=== PATIENT | female | born 1955 | race American Indian/Alaskan Native ===

== ENCOUNTER 2019-04-24 15:32 | Inpatient (IN) | payer MEDICARE ==
--- NOTE | 2019-04-24 16:08 | Event Note ---
ED Screening Note Date of service: 04/24/19 Time: 16:02 ED Screening Note: This is a 63 y.o. F. that presents to the ER with SOB, edema, and left shoulder pain x 3 days. PMH of HTN, Afib, morbid obesity, DM, & sciatica This initial assessment/diagnostic orders/clinical plan/treatment(s) is/are subject to change based on patients health status, clinical progression and re- assessment by fellow clinical providers in the ED. Further treatment and workup at subsequent clinical providers discretion. Patient/guardian urged not to elope from the ED as their condition may be serious if not clinically assessed and managed. Initial orders include: Labs, CXR, & EKG
--- NOTE | 2019-04-24 16:55 | XRay Report ---
CHEST 2 VIEWS INDICATION: edema and sob. COMPARISON: 03/03/2013. FINDINGS: Support devices: None. Heart: Moderate cardiomegaly has increased. Lungs/Pleura: No acute air space or interstitial disease. No significant pleural effusion. IMPRESSION: Increasing cardiomegaly. Signer Name: Richy Mei MD Signed: 04/24/2019 4:51 PM Workstation Name: [id number]
[2019-04-24 17:30] LABS: Alanine Aminotransferase 20 units/L (7-56); Albumin 3.5 g/dL (3.9-5); BUN/Creatinine Ratio 23; Blood Urea Nitrogen 16 mg/dL (7-17); Calcium 9.1 mg/dL (8.4-10.2); Hemolysis Index 29
[2019-04-24 17:39] LABS: Basophils % (Auto) 0.4 % (0.0-1.8); Eosinophils # (Auto) 0.1 K/mm3 (0.0-0.4); Eosinophils % (Auto) 1.1 % (0.0-4.3); Hematocrit 36.8 % (30.3-42.9); Hemoglobin 12.1 gm/dl (10.1-14.3); Lymphocytes # (Auto) 1.6 K/mm3 (1.2-5.4); Lymphocytes % (Auto) 18.7 % (13.4-35.0); Mean Corpuscular HGB Conc 33 % (30-34); Mean Corpuscular Volume 97 fl (79-97); Monocytes # (Auto) 0.4 K/mm3 (0.0-0.8); Monocytes % (Auto) 4.3 % (0.0-7.3); Platelet Count 241 K/mm3 (140-440); Red Blood Count 3.81 M/mm3 (3.65-5.03); Red Cell Distribution Width 15.4 % (13.2-15.2)
[2019-04-24] MEDS ORDERED: FUROSEMIDE 40 MG/4 ML INJ IV ONE (19:52)
[2019-04-24 20:40] LABS: INR 1.19 (0.87-1.13)
[2019-04-24 20:41] LABS: Partial Thromboplastin Time 29.7 Sec. (24.2-36.6)
--- NOTE | 2019-04-24 21:36 | Emergency Department Report ---
ED Shortness of Breath HPI - General Chief Complaint: Dyspnea/Respdistress Stated Complaint: LEG SWELLING/SHORTNESS OF BREATH Time Seen by Provider: 04/24/19 16:01 Source: patient Mode of arrival: Wheelchair Limitations: No Limitations - History of Present Illness Initial Comments: Patient is a 63 yo AA female with a h/o chronic HTN, NIDDM, A-Fib and JHONNY and morbid obesity who presents to the ED with c/o acute onset persistent dyspnea on exertion, orthopnea and bilateral lower extremity edema for the last 1 week. Patient also c/o exertion chest pain and pressure. Patient denies dizziness, nausea, vomiting, cough, palpitations, syncope, abdominal pain, diaphoresis or headache, fever and chills. MD Complaint: shortness of breath, chest pain -: Sudden, week(s) (1) Pain Scale: 3 Quality: dull, aching Consistency: constant Improves With: nothing Worsens With: lying flat, exertion, movement Known History Of: diabetes Associated Symptoms: denies other symptoms, chest pain Treatments Prior to Arrival: none - Related Data Home Oxygen Therapy: No Home Medications Medication Instructions Recorded Confirmed Last Taken Aspirin [Baby Aspirin] 81 mg PO QDAY 03/03/13 03/03/13 03/03/13 02:00 Calcium Carbonate [Calcium] mg PO BID 03/03/13 03/03/13 03/03/13 02:00 Gabapentin 300 mg PO QDAY 03/03/13 03/03/13 03/03/13 02:00 Insulin NPH Hum/Reg Insulin Hm 30 units SUB-Q QPM 03/03/13 03/03/13 03/03/13 02:00 [Humulin 70-30 Vial] Insulin NPH Hum/Reg Insulin Hm 40 units SUB-Q QAM 03/03/13 03/03/13 03/03/13 11:30 [Humulin 70-30 Vial] Losartan/Hydrochlorothiazide 1 each PO QDAY 03/03/13 03/03/13 03/03/13 12:00 [Hyzaar 100-12.5] Metoprolol [Lopressor] 50 mg PO BID 03/03/13 03/03/13 03/03/13 02:00 Multivitamin [Multi-Vitamin Daily] 1 tab PO QDAY 03/03/13 03/03/13 03/03/13 02:00 Previous Rx's Medication Instructions Recorded Last Taken Type Hydrocodone Bit/Homatrop Me-Br 5 ml PO Q4H PRN #80 ml 03/03/13 Unknown Rx [Hydrocodone-Homatropine Syr 5-1.5 mg/5ml] Allergies Allergy/AdvReac Type Severity Reaction Status Date / Time duloxetine [From Cymbalta] Allergy Unknown Verified 04/24/19 15:38 ibuprofen Allergy Unknown Verified 04/24/19 15:38 lisinopril Allergy Swelling Verified 04/24/19 15:38 ED Review of Systems ROS: Stated complaint: LEG SWELLING/SHORTNESS OF BREATH Other details as noted in HPI Constitutional: denies: chills, fever Eyes: denies: eye pain, eye discharge, vision change ENT: denies: ear pain, throat pain Respiratory: orthopnea, shortness of breath, SOB with exertion, SOB at rest. denies: cough, wheezing Cardiovascular: chest pain, dyspnea on exertion, edema (bilateral lower legs). denies: palpitations Endocrine: no symptoms reported Gastrointestinal: denies: abdominal pain, nausea, diarrhea Genitourinary: denies: urgency, dysuria, discharge Musculoskeletal: other (Bilateral lower leg swelling). denies: back pain, joint swelling, arthralgia Skin: denies: rash, lesions Neurological: denies: headache, weakness, paresthesias Psychiatric: denies: anxiety, depression Hematological/Lymphatic: denies: easy bleeding, easy bruising ED Past Medical Hx - Past Medical History Previous Medical History?: Yes Hx Hypertension: Yes Hx Diabetes: Yes Additional medical history: DDD, Afib, Sciatica - Surgical History Past Surgical History?: Yes Additional Surgical History: lap band. tubal ligation. carpel tunnel x 4. umbilical hernia repair - Social History Smoking Status: Former Smoker Substance Use Type: None - Medications Home Medications: Home Medications Medication Instructions Recorded Confirmed Last Taken Type Aspirin [Baby Aspirin] 81 mg PO QDAY 03/03/13 03/03/13 03/03/13 02:00 History Calcium Carbonate [Calcium] mg PO BID 03/03/13 03/03/13 03/03/13 02:00 History Gabapentin 300 mg PO QDAY 03/03/13 03/03/13 03/03/13 02:00 History Hydrocodone Bit/Homatrop Me-Br 5 ml PO Q4H PRN #80 ml 03/03/13 Unknown Rx [Hydrocodone-Homatropine Syr 5-1.5 mg/5ml] Insulin NPH Hum/Reg Insulin Hm 30 units SUB-Q QPM 03/03/13 03/03/13 03/03/13 02:00 History [Humulin 70-30 Vial] Insulin NPH Hum/Reg Insulin Hm 40 units SUB-Q QAM 03/03/13 03/03/13 03/03/13 11:30 History [Humulin 70-30 Vial] Losartan/Hydrochlorothiazide 1 each PO QDAY 03/03/13 03/03/13 03/03/13 12:00 History [Hyzaar 100-12.5] Metoprolol [Lopressor] 50 mg PO BID 03/03/13 03/03/13 03/03/13 02:00 History Multivitamin [Multi-Vitamin Daily] 1 tab PO QDAY 03/03/13 03/03/13 03/03/13 02:00 History ED Physical Exam - General Limitations: No Limitations General appearance: alert, in no apparent distress - Head Head exam: Present: atraumatic, normocephalic, normal inspection - Eye Eye exam: Present: normal appearance, PERRL, EOMI Pupils: Present: normal accommodation - ENT ENT exam: Present: normal exam, normal orophraynx, mucous membranes moist, TM's normal bilaterally, normal external ear exam - Neck Neck exam: Present: normal inspection, full ROM - Respiratory Respiratory exam: Present: normal lung sounds bilaterally. Absent: respiratory distress, wheezes, rales, rhonchi, chest wall tenderness, accessory muscle use, decreased breath sounds, prolonged expiratory - Cardiovascular Cardiovascular Exam: Present: normal rhythm, irregular rhythm, normal heart sounds. Absent: systolic murmur, diastolic murmur, rubs, gallop - GI/Abdominal GI/Abdominal exam: Present: soft, normal bowel sounds. Absent: tenderness, rebound, hyperactive bowel sounds - Extremities Exam Extremities exam: Present: normal inspection, full ROM, normal capillary refill, pedal edema (Bilateral 2+ pedal edema) - Back Exam Back exam: Present: normal inspection, full ROM. Absent: tenderness, CVA tenderness (L), muscle spasm, paraspinal tenderness - Neurological Exam Neurological exam: Present: alert, oriented X3, CN II-XII intact, normal gait, reflexes normal - Psychiatric Psychiatric exam: Present: normal affect, normal mood - Skin Skin exam: Present: warm, dry, intact, normal color. Absent: rash ED Course Vital Signs 04/24/19 04/24/19 16:03 20:15 Temperature 97.5 F L Pulse Rate 71 70 Respiratory 22 18 Rate Blood Pressure 131/59 Blood Pressure 142/96 [Left] O2 Sat by Pulse 95 94 Oximetry ED Medical Decision Making - Lab Data Result diagrams: 04/24/19 16:32 04/24/19 16:32 - EKG Data Interpretation: other (Atrial Fibrillation) 04/24/19 21:4 EKG shows Atrial Fibrillation - Radiology Data Chest x-ray shows increasing Cardiomegaly - Medical Decision Making This is a 63 yo AA female with a h/o HTN, A-Fib, NIDDM who presented to the ED with worsening dyspnea on exertion, orthopnea and bilateral lower extremity edema for the last 1 week. In the ED, patient is alert and oriented x 3 and is in no acute distress. Patient unable to lay flat on bed due to worsening dyspnea. EKG shows A-FIB, and chest x-ray shows increasing Cardiomegaly. Lab test results shows BNP of 1975 and the initial Troponin levels are normal. Patient was treated in the ED with Lasix 40mg IV x 1 and the case discussed with the Hospitalist Physician Dr. Jaffe who admitted the patient for a new onset CHF. - Differential Diagnosis CHF, Pneumonia; ACS; Renal failure Critical care attestation.: If time is entered above; I have spent that time in minutes in the direct care of this critically ill patient, excluding procedure time. ED Disposition Clinical Impression: Dyspnea on exertion, New onset of congestive heart failure Disposition: OP ADMIT IP TO THIS HOSP Is pt being admited?: Yes Does the pt Need Aspirin: No Condition: Stable Referrals: PRIMARY CARE, [Primary Care Provider] - 3-5 Days Time of Disposition: 21:33 Print Language: WALLISIAN
[2019-04-24] MEDS ORDERED: ACETAMINOPHEN 325 MG TAB PO PRN (22:37)
[2019-04-24] MEDS ORDERED: MAGNESIUM HYDROXIDE (MOM) ORAL LIQD UDC PO PRN (22:37)
[2019-04-24] MEDS ORDERED: ONDANSETRON 4 MG/2 ML INJ IV PRN (22:37)
[2019-04-24] MEDS ORDERED: DEXTROSE 50% IN WATER (25GM) 50 ML SYRINGE IV PRN (22:49)
[2019-04-24 22:52] LABS: Bilirubin,Urine NEG (Negative); Blood,Urine SM (Negative); Color,Urine Colorless (Yellow); Protein,Urine <15 mg/dL mg/dL (Negative); Urobilinogen,Urine < 2.0 mg/dL (<2.0); WBC,Urine < 1.0 /HPF (0.0-6.0)
--- NOTE | 2019-04-25 01:50 | History and Physical Report ---
History of Present Illness Date of examination: 04/24/19 Date of admission: 04/24/19 22:37 Chief complaint: Shortness of breath History of present illness: 63-year-old female with known history of diabetes mellitus, hypertension, atrial fibrillation status post catheter ablation in the past and obstructive sleep apnea presenting to the emergency room today complaining of shortness of breath and orthopnea which has been ongoing for about a week prior to reporting he had today. She has also noticed progressive swelling of her lower extremities. She denies any chest pain, no nausea vomiting, no fever or chills. Past History Past Medical History: atrial fib, diabetes, hypertension, other (Obstructive sleep apnea, morbid obesity, sciatica and degenerative disc disease.) Past Surgical History: hernia repair (Umbilical hernia repair), Other (Catheter ablation for A. fib, lap band, carpal tunnel surgery) Social history: smoking (Patient is a former smoker) Family history: cancer (Sister had ovarian cancer, grandmother had colon cancer.), diabetes (Mother had diabetes mellitus,) Medications and Allergies Allergies Allergy/AdvReac Type Severity Reaction Status Date / Time duloxetine [From Cymbalta] Allergy Unknown Verified 04/24/19 15:38 ibuprofen Allergy Unknown Verified 04/24/19 15:38 lisinopril Allergy Swelling Verified 04/24/19 15:38 Home Medications Medication Instructions Recorded Confirmed Last Taken Type Calcium Carbonate [Calcium] 1 mg PO BID 03/03/13 04/24/19 03/03/13 02:00 History Gabapentin 300 mg PO QDAY 03/03/13 04/24/19 03/03/13 02:00 History Hydrocodone Bit/Homatrop Me-Br 5 ml PO Q4H PRN #80 ml 03/03/13 04/24/19 Unknown Rx [Hydrocodone-Homatropine Syr 5-1.5 mg/5ml] Insulin NPH Hum/Reg Insulin Hm 30 units SUB-Q QPM 03/03/13 04/24/19 03/03/13 02:00 History [Humulin 70-30 Vial] Insulin NPH Hum/Reg Insulin Hm 40 units SUB-Q QAM 03/03/13 04/24/19 03/03/13 11:30 History [Humulin 70-30 Vial] Losartan/Hydrochlorothiazide 1 each PO QDAY 03/03/13 04/24/19 03/03/13 12:00 History [Hyzaar 100-12.5] Metoprolol [Lopressor] 50 mg PO BID 03/03/13 04/24/19 03/03/13 02:00 History Multivitamin [Multi-Vitamin Daily] 1 tab PO QDAY 03/03/13 04/24/19 03/03/13 02:00 History Apixaban [Eliquis] 5 mg PO BID 04/24/19 04/24/19 Unknown History Active Meds: Active Medications Acetaminophen (Tylenol) 650 mg PO Q4H PRN PRN Reason: Pain MILD(1-3)/Fever >100.5/ORTIZ Dextrose (D50w (25gm) Syringe) 0 ml IV Q30MIN PRN; Protocol PRN Reason: Hypoglycemia Furosemide (Lasix) 40 mg IV BID@0600,1800 [facility] Insulin Human Lispro (Humalog) 0 unit SUB-Q ACHS [facility]; Protocol Magnesium Hydroxide (Milk Of Magnesia) 30 ml PO Q4H PRN PRN Reason: Constipation Morphine Sulfate (Morphine) 2 mg IV Q4H PRN PRN Reason: Pain, Moderate (4-6) Ondansetron HCl (Zofran) 4 mg IV Q8H PRN PRN Reason: Nausea And Vomiting Sodium Chloride (Sodium Chloride Flush Syringe 10 Ml) 10 ml IV BID [facility] Sodium Chloride (Sodium Chloride Flush Syringe 10 Ml) 10 ml IV PRN PRN PRN Reason: LINE FLUSH Review of Systems Cardiovascular: orthopnea, edema, shortness of breath Exam - Constitutional Vitals: Temp Pulse Resp BP Pulse Ox 97.7 F 70 20 138/61 93 04/25/19 00:55 04/25/19 00:55 04/25/19 00:55 04/25/19 00:55 04/25/19 00:55 General appearance: Present: no acute distress, well-nourished, obese (Morbidly obese) - EENT Eyes: Present: PERRL, EOM intact ENT: hearing intact, clear oral mucosa, dentition normal - Neck Neck: Present: supple, normal ROM - Respiratory Respiratory effort: normal Respiratory: bilateral: CTA - Cardiovascular Rhythm: regular Heart Sounds: Present: S1 & S2 - Extremities Extremities: no ischemia, Full ROM Extremity abnormal: edema (2+ bilateral lower extremity edema) Peripheral Pulses: within normal limits - Abdominal General gastrointestinal: Present: soft, non-tender, normal bowel sounds - Integumentary Integumentary: Present: clear, warm, dry - Musculoskeletal Musculoskeletal: strength equal bilaterally - Psychiatric Psychiatric: appropriate mood/affect, intact judgment & insight, cooperative - Neurologic Neurologic: CNII-XII intact, moves all extremities Results - Labs CBC & Chem 7: 04/24/19 16:32 04/24/19 16:32 Labs: Abnormal lab results 04/24/19 04/24/19 04/24/19 Range/Units 16:32 16:32 19:51 RDW 15.4 H (13.2-15.2) % Seg Neutrophils % 75.5 H (40.0-70.0) % PT 15.3 H (12.2-14.9) Sec. INR 1.19 H (0.87-1.13) Carbon Dioxide 21 L (22-30) mmol/L Glucose 132 H (65-100) mg/dL NT-Pro-B Natriuret Pep 1975 H (0-900) pg/mL Albumin 3.5 L (3.9-5) g/dL Assessment and Plan - Patient Problems (1) New onset of congestive heart failure Current Visit: Yes Status: Acute Plan to address problem: Patient is admitted to telemetry and will diurese with IV Lasix. Will monitor daily weight and monitor input and output. We will request cardiology evaluation and recommendation. We will schedule for echocardiogram. (2) Dyspnea on exertion Current Visit: Yes Status: Acute Plan to address problem: Probably secondary to CHF. (3) Diabetes mellitus Current Visit: Yes Status: Acute Plan to address problem: We will monitor Accu-Cheks. We will continue routine home medications. (4) Hypertension Current Visit: Yes Status: Acute Plan to address problem: Blood pressure stable. Will monitor vital signs closely. (5) History of atrial fibrillation Current Visit: Yes Status: Acute Plan to address problem: Status post catheter ablation in the past. Rate is currently controlled. (6) History of obstructive sleep apnea Current Visit: Yes Status: Acute Plan to address problem: Stable. (7) DVT prophylaxis Current Visit: Yes Status: Acute Plan to address problem: Patient placed on subcutaneous heparin. (8) Full code status Current Visit: Yes Status: Acute
[2019-04-25] MEDS: MORPHINE 2 MG/1 ML INJ IV PRN ×2 (02:11→15:16)
[2019-04-25 05:29] LABS: INR 0.72 (0.87-1.13)
[2019-04-25 05:30] LABS: Basophils % (Auto) 0.5 % (0.0-1.8); Eosinophils # (Auto) 0.1 K/mm3 (0.0-0.4); Eosinophils % (Auto) 1.5 % (0.0-4.3); Hematocrit 36.3 % (30.3-42.9); Lymphocytes # (Auto) 2.1 K/mm3 (1.2-5.4); Lymphocytes % (Auto) 25.9 % (13.4-35.0); Mean Corpuscular HGB Conc 33 % (30-34); Mean Corpuscular Volume 96 fl (79-97); Monocytes # (Auto) 0.5 K/mm3 (0.0-0.8); Monocytes % (Auto) 5.7 % (0.0-7.3); Platelet Count 214 K/mm3 (140-440); Red Cell Distribution Width 15.2 % (13.2-15.2)
[2019-04-25 05:31] LABS: Partial Thromboplastin Time < 24.2 Sec. (24.2-36.6)
[2019-04-25 05:36] LABS: BUN/Creatinine Ratio 21; Blood Urea Nitrogen 15 mg/dL (7-17); Calcium 9.1 mg/dL (8.4-10.2); Hemolysis Index 28
[2019-04-25] MEDS: FUROSEMIDE 40 MG/4 ML INJ IV SCH ×2 (06:46→17:23)
[2019-04-25] MEDS: HEPARIN 5,000 UNIT/1 ML VIAL SUB-Q SCH ×3 (06:46→22:29)
[2019-04-25] MEDS: INSULIN LISPRO 100 UNIT/ML SUB-Q SCH ×4 (08:19→22:49)
--- NOTE | 2019-04-25 08:57 | Consultation ---
History of Present Illness Consult date: 04/25/19 Consult reason: congestive heart failure, hypertension History of present illness: 63 year old obese -[place]ian female presenting with shortness of breath to the emergency room. She denies any chest pain and states that her [employer] are in [facility] Past History Past Medical History: atrial fib, diabetes, hypertension, other (Obstructive sleep apnea, morbid obesity, sciatica and degenerative disc disease.) Past Surgical History: hernia repair (Umbilical hernia repair), Other (Catheter ablation for A. fib, lap band, carpal tunnel surgery) Social history: smoking (Patient is a former smoker) Family history: cancer (Sister had ovarian cancer, grandmother had colon cancer.), diabetes (Mother had diabetes mellitus,) Medications and Allergies Allergies Allergy/AdvReac Type Severity Reaction Status Date / Time duloxetine [From Cymbalta] Allergy Unknown Verified 04/24/19 15:38 ibuprofen Allergy Unknown Verified 04/24/19 15:38 lisinopril Allergy Swelling Verified 04/24/19 15:38 Home Medications Medication Instructions Recorded Confirmed Last Taken Type Calcium Carbonate [Calcium] 1 mg PO BID 03/03/13 04/24/19 03/03/13 02:00 History Gabapentin 300 mg PO QDAY 03/03/13 04/24/19 03/03/13 02:00 History Hydrocodone Bit/Homatrop Me-Br 5 ml PO Q4H PRN #80 ml 03/03/13 04/24/19 Unknown Rx [Hydrocodone-Homatropine Syr 5-1.5 mg/5ml] Insulin NPH Hum/Reg Insulin Hm 30 units SUB-Q QPM 03/03/13 04/24/19 03/03/13 02:00 History [Humulin 70-30 Vial] Insulin NPH Hum/Reg Insulin Hm 40 units SUB-Q QAM 03/03/13 04/24/19 03/03/13 11:30 History [Humulin 70-30 Vial] Losartan/Hydrochlorothiazide 1 each PO QDAY 03/03/13 04/24/19 03/03/13 12:00 History [Hyzaar 100-12.5] Metoprolol [Lopressor] 50 mg PO BID 03/03/13 04/24/19 03/03/13 02:00 History Multivitamin [Multi-Vitamin Daily] 1 tab PO QDAY 03/03/13 04/24/19 03/03/13 02:00 History Apixaban [Eliquis] 5 mg PO BID 04/24/19 04/24/19 Unknown History Active Meds: Active Medications Acetaminophen (Tylenol) 650 mg PO Q4H PRN PRN Reason: Pain MILD(1-3)/Fever >100.5/ORTIZ Dextrose (D50w (25gm) Syringe) 0 ml IV Q30MIN PRN; Protocol PRN Reason: Hypoglycemia Furosemide (Lasix) 40 mg IV BID@0600,1800 [facility] Last Admin: 04/25/19 06:46 Dose: 40 mg Documented by: Heparin Sodium (Porcine) (Heparin) 5,000 unit SUB-Q Q8HR [facility] Last Admin: 04/25/19 06:46 Dose: 5,000 unit Documented by: Insulin Human Lispro (Humalog) 0 unit SUB-Q ACHS [facility]; Protocol Last Admin: 04/25/19 08:19 Dose: Not Given Documented by: Magnesium Hydroxide (Milk Of Magnesia) 30 ml PO Q4H PRN PRN Reason: Constipation Morphine Sulfate (Morphine) 2 mg IV Q4H PRN PRN Reason: Pain, Moderate (4-6) Last Admin: 04/25/19 02:11 Dose: 2 mg Documented by: Ondansetron HCl (Zofran) 4 mg IV Q8H PRN PRN Reason: Nausea And Vomiting Sodium Chloride (Sodium Chloride Flush Syringe 10 Ml) 10 ml IV BID [facility] Sodium Chloride (Sodium Chloride Flush Syringe 10 Ml) 10 ml IV PRN PRN PRN Reason: LINE FLUSH Review of Systems Constitutional: weight gain, fatigue, weakness Ears, nose, mouth and throat: no ear pain, no ear discharge, no tinnitis, no bleeding gums, no dental pain, no mouth pain Breasts: no deferred Cardiovascular: orthopnea, edema, dyspnea on exertion, no chest pain, no palpitations, no rapid/irregular heart beat, no syncope Respiratory: no shortness of breath, no dyspnea on exertion, no congestion, no wheezing Gastrointestinal: no nausea, no vomiting, no diarrhea Musculoskeletal: no neck stiffness, no neck pain, no shooting arm pain Integumentary: no rash, no pruritis, no redness Neurological: no head injury, no transient paralysis, no paralysis, no weakness, no parathesias, no numbness Psychiatric: no anxiety Endocrine: no cold intolerance, no polyphagia, no polydipsia Hematologic/Lymphatic: no easy bruising, no easy bleeding Allergic/Immunologic: no urticaria, no allergic rhinitis, no wheezing Physical Examination Vital Signs Temp Pulse Resp BP Pulse Ox 97.5 F L 71 22 131/59 95 04/24/19 16:03 04/24/19 16:03 04/24/19 16:03 04/24/19 16:03 04/24/19 16:03 General appearance: obese HEENT: Positive: PERRL, Normocephaly, Mucus Membranes Moist Neck: Positive: neck supple, trachea midline. Negative: JVD/HJR Cardiac: Positive: irregularly irregular, S1/S2, PMI, Dilated, Laterally Displaced Lungs: Positive: clear to auscultation, No Wheeze, Rales, Rhonchi Neuro: Positive: Grossly Intact Abdomen: Positive: Unremarkable, Active Bowel Sounds Extremities: Present: normal. Absent: edema Results 04/25/19 03:53 04/25/19 03:53 Cardiac Enzymes 04/24/19 Range/Units 16:32 AST 20 (5-40) units/L Coagulation 04/24/19 04/25/19 Range/Units 19:51 03:53 PT 15.3 H 10.3 L (12.2-14.9) Sec. INR 1.19 H 0.72 L (0.87-1.13) APTT 29.7 < 24.2 L (24.2-36.6) Sec. CBC 04/24/19 04/25/19 Range/Units 16:32 03:53 WBC 8.4 8.3 (4.5-11.0) K/mm3 RBC 3.81 3.80 (3.65-5.03) M/mm3 Hgb 12.1 12.0 (10.1-14.3) gm/dl Hct 36.8 36.3 (30.3-42.9) % Plt Count 241 214 (140-440) K/mm3 Lymph # 1.6 2.1 (1.2-5.4) K/mm3 [place] # 0.4 0.5 (0.0-0.8) K/mm3 Eos # 0.1 0.1 (0.0-0.4) K/mm3 Baso # 0.0 0.0 (0.0-0.1) K/mm3 Comprehensive Metabolic Panel 04/24/19 04/25/19 Range/Units 16:32 03:53 Sodium 139 145 (137-145) mmol/L Potassium 4.8 4.4 (3.6-5.0) mmol/L Chloride 103.8 104.6 (98-107) mmol/L Carbon Dioxide 21 L 24 (22-30) mmol/L BUN 16 15 (7-17) mg/dL Creatinine 0.7 0.7 (0.7-1.2) mg/dL Glucose 132 H 107 H (65-100) mg/dL Calcium 9.1 9.1 (8.4-10.2) mg/dL AST 20 (5-40) units/L ALT 20 (7-56) units/L Alkaline Phosphatase 72 (35-129) units/L Total Protein 6.9 (6.3-8.2) g/dL Albumin 3.5 L (3.9-5) g/dL EKG interpretations - Telemetry EKG Rhythm: Atrial Fibrillation Assessment and Plan 1. Chronic atrial fibrillation 2. Essential hypertension 3. Type 2 diabetes mellitus 4. Morbid obesity 5. Obstructive sleep apnea Patient's chest x-ray shows no overt signs of pulmonary edema. Patient to have an echocardiogram. EKG shows atrial fibrillation with a controlled ventricular response. Plan. Echocardiogram. Recommend anticoagulation long-term. Check TSH level
[2019-04-25] MEDS ORDERED: HYDROcodone/HOMATROPINE 5-1.5MG /5 ML ORAL LIQD UNIT DOSE PO PRN (12:09)
--- NOTE | 2019-04-25 12:09 | Progress Note ---
Assessment and Plan / New onset of congestive heart failure Patient is admitted to telemetry and will cont diurese with IV Lasix. Will monitor daily weight and monitor input and output. We will request cardiology evaluation and recommendation. We will follow echocardiogram result. / Dyspnea on exertion Probably secondary to CHF vs obesity hyperventilation syndrom. will provide O2 with N/c / Diabetes mellitus We will monitor Accu-Cheks. We will continue routine home medications. / Hypertension Blood pressure stable. Will monitor vital signs closely. / History of atrial fibrillation Status post catheter ablation in the past. Rate is currently controlled. / History of obstructive sleep apnea Stable. CPAP at bedtime / DVT prophylaxis Patient placed on eliqis . / Full code status Subjective Date of service: 04/25/19 Interval history: patient seen and examined c/o SOB on exertion states leg swelling improved Objective - Constitutional Vitals: Vital Signs - 12hr 04/25/19 04/25/19 04/25/19 00:55 02:11 02:41 Temperature 97.7 F Pulse Rate 70 Respiratory 20 20 20 Rate Blood Pressure 138/61 O2 Sat by Pulse 93 Oximetry 04/25/19 04/25/19 04/25/19 04:49 07:46 10:00 Temperature 97.8 F 98.4 F Pulse Rate 69 86 72 Respiratory 20 20 Rate Blood Pressure 127/83 101/58 O2 Sat by Pulse 99 89 Oximetry General appearance: Present: no acute distress, obese (morbid) - EENT Eyes: PERRL, EOM intact ENT: hearing intact, clear oral mucosa Ears: bilateral: normal - Neck Neck: supple, normal ROM - Respiratory Respiratory effort: normal Respiratory: bilateral: CTA - Cardiovascular Rhythm: regular Heart Sounds: Present: S1 & S2. Absent: gallop, rub Extremities: pulses intact, No edema, normal color, Full ROM - Gastrointestinal General gastrointestinal: Present: soft, non-tender, non-distended, normal bowel sounds - Integumentary Integumentary: clear, warm, dry - Musculoskeletal Musculoskeletal: 1, strength equal bilaterally - Neurologic Neurologic: moves all extremities - Psychiatric Psychiatric: memory intact, appropriate mood/affect, intact judgment & insight - Labs CBC & Chem 7: 04/25/19 03:53 04/25/19 03:53 Labs: Abnormal lab results 04/24/19 04/24/19 04/24/19 Range/Units 16:32 16:32 19:51 RDW 15.4 H (13.2-15.2) % Seg Neutrophils % 75.5 H (40.0-70.0) % PT 15.3 H (12.2-14.9) Sec. INR 1.19 H (0.87-1.13) APTT (24.2-36.6) Sec. Carbon Dioxide 21 L (22-30) mmol/L Glucose 132 H (65-100) mg/dL POC Glucose (70-105) NT-Pro-B Natriuret Pep 1975 H (0-900) pg/mL Albumin 3.5 L (3.9-5) g/dL 04/25/19 04/25/19 04/25/19 Range/Units 03:53 03:53 07:54 RDW (13.2-15.2) % Seg Neutrophils % (40.0-70.0) % PT 10.3 L (12.2-14.9) Sec. INR 0.72 L (0.87-1.13) APTT < 24.2 L (24.2-36.6) Sec. Carbon Dioxide (22-30) mmol/L Glucose 107 H (65-100) mg/dL POC Glucose 112 H (70-105) NT-Pro-B Natriuret Pep (0-900) pg/mL Albumin (3.9-5) g/dL
[2019-04-25] MEDS: APIXABAN 5 MG TAB PO SCH ×2 (14:18→22:25)
[2019-04-25] MEDS ORDERED: INSULIN NPH/REGULAR 70/30 INJ SUB-Q SCH (18:00)
[2019-04-25] MEDS ORDERED: CALCIUM CARBONATE 1250 MG TAB PO SCH (22:00)
[2019-04-25] MEDS: METOPROLOL TARTRATE 50 MG TAB PO SCH (22:28)
[2019-04-25] MEDS: CALCIUM CARBONATE 1250 MG TAB PO SCH (22:36)
[2019-04-26] MEDS: FUROSEMIDE 40 MG/4 ML INJ IV SCH (06:01)
[2019-04-26] MEDS: HEPARIN 5,000 UNIT/1 ML VIAL SUB-Q SCH ×2 (06:01→14:12)
[2019-04-26] MEDS: INSULIN LISPRO 100 UNIT/ML SUB-Q SCH ×2 (08:28→11:41)
[2019-04-26] MEDS: METOPROLOL TARTRATE 50 MG TAB PO SCH (09:46)
[2019-04-26] MEDS: APIXABAN 5 MG TAB PO SCH (09:46)
[2019-04-26] MEDS: CALCIUM CARBONATE 1250 MG TAB PO SCH (09:46)
[2019-04-26] MEDS ORDERED: MULTIVITAMIN PO SCH (10:00)
[2019-04-26] MEDS ORDERED: INSULIN NPH/REGULAR 70/30 INJ SUB-Q SCH (10:00)
[2019-04-26] MEDS ORDERED: MULTIVITAMINS ,THERAPEUTIC TAB PO SCH (10:00)
[2019-04-26] MEDS ORDERED: GABAPENTIN 300 MG CAP PO SCH (10:00)
--- NOTE | 2019-04-26 10:10 | Progress Note ---
Assessment and Plan 1. Chronic atrial fibrillation 2. Essential hypertension 3. Type 2 diabetes mellitus 4. Morbid obesity 5. Obstructive sleep apnea Patient's chest x-ray shows no overt signs of pulmonary edema. Patient to have an echocardiogram. EKG shows atrial fibrillation with a controlled ventricular response. Plan. Cardiac regan stable Subjective Date of service: 04/26/19 Interval history: No cardiac symptoms. Objective Vital Signs Temp Pulse Resp BP Pulse Ox 04/26/19 04:08 98.0 F 71 18 123/62 96 04/25/19 23:41 98.0 F 84 18 108/48 93 04/25/19 22:28 99 H 113/58 04/25/19 19:44 84 04/25/19 19:29 98.0 F 99 H 20 113/58 95 04/25/19 16:09 97.9 F 75 20 139/67 94 - Physical Examination General: Appears Well HEENT: Positive: PERRL, Normocephaly, Mucus Membranes Moist Neck: Positive: neck supple, trachea midline. Negative: JVD/HJR Cardiac: Positive: Reg Rate and Rhythm, Regular Rate, S1/S2, PMI, Laterally Displaced Lungs: Positive: clear to auscultation, No Wheeze, Rales, Rhonchi Neuro: Positive: Grossly Intact Abdomen: Positive: Unremarkable, Active Bowel Sounds Skin: Positive: Clear, Rash Extremities: Present: normal. Absent: edema
[2019-04-26 12:25] VITALS: BP 114/61
--- NOTE | 2019-04-26 14:42 | Discharge Summary ---
Providers - Providers Date of Admission: 04/24/19 22:37 Date of discharge: 04/26/19 Attending physician: DES LUQUE 04/24/19 22:37 Consult to Physician [CONS] Routine Comment: Consulting Provider: TU MARES Physician Instructions: Reason For Exam: NEW ONSET CHF Primary care physician: RECORD MAKER Hospitalization Condition: Stable Pertinent studies: CXR 2d echo Hospital course: 63-year-old female with known history of diabetes mellitus, hypertension, atrial fibrillation status post catheter ablation in the past and obstructive sleep apnea presenting to the emergency room today complaining of shortness of breath and orthopnea which has been ongoing for about a week prior to reporting he had today. She has also noticed progressive swelling of her lower extremities. She denies any chest pain, no nausea vomiting, no fever or chills. Discharge diagnosis: / Possible diastolic congestive heart failure Patient was admitted to telemetry and diuresed with IV Lasix. monitored daily weight and monitor input and output. preserved Ef on 2d echocardiogram, cardiology consulted and will cont medical Mx / Dyspnea on exertion Probably secondary to obesity hyperventilation syndrome. recommended diet and exercise regimen as tolerated as outpt / Diabetes mellitus BG monitored with Accu-Cheks. / Hypertension Blood pressure stable. / History of atrial fibrillation Status post catheter ablation in the past. Rate is currently controlled. on eliquis / History of obstructive sleep apnea Stable. CPAP at bedtime outpt sleep study / DVT prophylaxis Patient placed on eliqis . / Full code status Disposition: DC-01 TO HOME OR SELFCARE Time spent for discharge: 34 minutes Core Measure Documentation - Palliative Care Palliative Care/ Comfort Measures: Not Applicable - Core Measures Any of the following diagnoses?: none Exam - Constitutional Vitals: Temp Pulse Resp BP Pulse Ox 98.7 F 83 20 114/61 92 04/26/19 12:20 04/26/19 12:20 04/26/19 12:20 04/26/19 12:20 04/26/19 12:20 General appearance: Present: no acute distress, obese (morbid) - EENT Eyes: Present: PERRL ENT: hearing intact, clear oral mucosa - Neck Neck: Present: supple, normal ROM - Respiratory Respiratory effort: normal Respiratory: bilateral: CTA - Cardiovascular Heart Sounds: Present: S1 & S2. Absent: rub, click - Extremities Extremities: pulses symmetrical, No edema Peripheral Pulses: within normal limits - Abdominal General gastrointestinal: Present: soft, non-tender, non-distended, normal bowel sounds - Integumentary Integumentary: Present: clear, warm, dry - Musculoskeletal Musculoskeletal: gait normal, strength equal bilaterally - Psychiatric Psychiatric: appropriate mood/affect, intact judgment & insight - Neurologic Neurologic: CNII-XII intact, moves all extremities Plan Activity: advance as tolerated Weight Bearing Status: Weight Bear as Tolerated Diet: low fat, low salt, diabetic Special Instructions: record blood sugar diary Follow up with: PRIMARY CAREMD [Primary Care Provider] - 3-5 Days NANNETTE MENDEZ MD [Staff Physician] - 7 Days
== END 2019-04-26 16:30 | disposition home or self-care (01) | DRG 292 ==
LOC: ED 15:32 → 4A 22:37
PROVIDERS: ADMIT Internal Medicine Geriatric Medicine; ATTEND Internal Medicine
DX: I11.0 Hypertensive heart disease with heart failure (principal); Z68.45 Body mass index [BMI] 70 or greater, adult; E66.2 Morbid (severe) obesity with alveolar hypoventilation; I50.30 Unspecified diastolic (congestive) heart failure; E11.9 Type 2 diabetes mellitus without complications; I48.91 Unspecified atrial fibrillation; Z80.41 Family history of malignant neoplasm of ovary; Z80.8 Family history of malignant neoplasm of other organs or systems; Z83.3 Family history of diabetes mellitus; Z79.899 Other long term (current) drug therapy; Z79.4 Long term (current) use of insulin; Z98.51 Tubal ligation status
CPT/HCPCS: 36415; 71046; 80048; 80053; 81001; 82962; 83880; 84443; 84484; 85025; 85610; 85730; 93306; G0378; J1644; J1815; J1940; J2270

== ENCOUNTER 2019-05-12 09:40 | Inpatient (IN) | payer MEDICARE ==
--- NOTE | 2019-05-12 11:13 | XRay Report ---
CHEST 2 VIEWS INDICATION: sob, cough. COMPARISON: 04/24/2019 FINDINGS: Support devices: None. Heart: Within normal limits. Lungs: Interval development airspace process right lung. Pleura: No significant pleural effusion. No pneumothorax. Additional findings: None. IMPRESSION: 1. Airspace process right lung, most consistent with pneumonia Signer Name: Seven Leonard MD Signed: 05/12/2019 11:08 AM Workstation Name: [id number]
[2019-05-12] MEDS ORDERED: ALBUTEROL 2.5 MG/3 ML NEBU IH ONE (11:35)
[2019-05-12] MEDS ORDERED: methylPREDNISolone Sod Succinate 125 MG/2 ML INJ IV ONE (11:35)
[2019-05-12] MEDS ORDERED: IPRATROPIUM 0.02% NEBU 2.5 ML IH ONE (11:35)
[2019-05-12 11:40] LABS: Basophils % (Auto) 0.3 % (0.0-1.8); Eosinophils % (Auto) 0.3 % (0.0-4.3); Hemoglobin 12.8 gm/dl (10.1-14.3); Lymphocytes # (Auto) 0.6 K/mm3 (1.2-5.4); Lymphocytes % (Auto) 7.5 % (13.4-35.0); Mean Corpuscular HGB Conc 33 % (30-34); Mean Corpuscular Volume 97 fl (79-97); Monocytes # (Auto) 0.5 K/mm3 (0.0-0.8); Monocytes % (Auto) 6.3 % (0.0-7.3); Platelet Count 188 K/mm3 (140-440); Red Blood Count 4.03 M/mm3 (3.65-5.03); Red Cell Distribution Width 14.9 % (13.2-15.2)
[2019-05-12 11:53] LABS: INR 1.1 (0.87-1.13)
[2019-05-12 11:56] LABS: Partial Thromboplastin Time 29.8 Sec. (24.2-36.6)
[2019-05-12] MEDS ORDERED: CEFEPIME/NS 2 GM/100 ML 2 GM/100 ML BAG IV SCH (12:00)
[2019-05-12] MEDS ORDERED: VANCOMYCIN 2,000 MG in SODIUM CHLORIDE 0.9% 500 ML 500 ML IV ONE (12:00)
[2019-05-12 12:04] LABS: BUN/Creatinine Ratio 16; Blood Urea Nitrogen 11 mg/dL (7-17); Calcium 8.8 mg/dL (8.4-10.2); Hemolysis Index 9
--- NOTE | 2019-05-12 13:00 | Emergency Department Report ---
ED Shortness of Breath HPI - General Chief Complaint: Dyspnea/Respdistress Stated Complaint: FLU LIKE SX/COUGHING UP BLOOD Time Seen by Provider: 05/12/19 10:31 Source: patient, EMS, old records reviewed Mode of arrival: Stretcher Limitations: Physical Limitation - History of Present Illness Initial Comments: 63-year-old female with known history of diabetes mellitus, hypertension, atrial fibrillation currently on Eliquis, obesity, obstructive sleep apnea noncompliant with CPAP presents to the hospital complaining of shortness of breath and cough. Patient has had a cough productive of sputum for the past week and then developed emili hemoptysis this morning. Patient also with her shortness of breath worse with exertion for the past week that worsened today. Patient complains of chest pain with coughing and inspiration. She's been compliant with her medications included a liquids. She is recently admitted here to the hospital April 24 2 April 26 with a diagnosis of possible diastolic congestive heart failure. EF on echocardiogram performed 1955 percent. Patient was exposed to sick family members with URI symptoms over the holidays. She denies fever and did not get a flu shot this season. Patient does not use home oxygen. PMD: not affiliated - Related Data Home Medications Medication Instructions Recorded Confirmed Last Taken Calcium Carbonate [Calcium] 1 mg PO BID 03/03/13 04/24/19 03/03/13 02:00 Gabapentin 300 mg PO QDAY 03/03/13 04/24/19 03/03/13 02:00 Insulin NPH Hum/Reg Insulin Hm 30 units SUB-Q QPM 03/03/13 04/24/19 03/03/13 02:00 [HumuLIN 70-30 Vial] Insulin NPH Hum/Reg Insulin Hm 40 units SUB-Q QAM 03/03/13 04/24/19 03/03/13 11:30 [HumuLIN 70-30 Vial] Multivitamin [Multi-Vitamin Daily] 1 tab PO QDAY 03/03/13 04/24/19 03/03/13 02:00 Apixaban [Eliquis] 5 mg PO BID 04/24/19 04/24/19 Unknown ALBUTEROL Inhaler (OR & NICU) 2 puff IH QID PRN 05/12/19 05/12/19 Unknown [ProAir HFA Inhaler] Insulin Aspart (Nf) [NovoLOG See Protocol 05/12/19 Unknown Flexpen] Metoprolol Tartrate 75 mg PO BID 05/12/19 05/12/19 Unknown Previous Rx's Medication Instructions Recorded Last Taken Type Hydrocodone Bit/Homatrop Me-Br 5 ml PO Q4H PRN #80 ml 03/03/13 Unknown Rx [HYDROcodone-Homatropine Syr 5/1.5 mg/5ml] Allergies Allergy/AdvReac Type Severity Reaction Status Date / Time duloxetine [From Cymbalta] Allergy Unknown Verified 04/24/19 15:38 ibuprofen Allergy Unknown Verified 04/24/19 15:38 lisinopril Allergy Swelling Verified 04/24/19 15:38 ED Review of Systems ROS: Stated complaint: FLU LIKE SX/COUGHING UP BLOOD Other details as noted in HPI Comment: All other systems reviewed and negative ED Past Medical Hx - Past Medical History Previous Medical History?: Yes Hx Hypertension: Yes Hx Congestive Heart Failure: Yes Hx Diabetes: Yes Additional medical history: DDD, Afib, Sciatica - Surgical History Past Surgical History?: Yes Additional Surgical History: lap band. tubal ligation. carpel tunnel x 4. umbilical hernia repair - Social History Smoking Status: Former Smoker Substance Use Type: None - Medications Home Medications: Home Medications Medication Instructions Recorded Confirmed Last Taken Type Calcium Carbonate [Calcium] 1 mg PO BID 03/03/13 04/24/19 03/03/13 02:00 History Gabapentin 300 mg PO QDAY 03/03/13 04/24/19 03/03/13 02:00 History Hydrocodone Bit/Homatrop Me-Br 5 ml PO Q4H PRN #80 ml 03/03/13 04/24/19 Unknown Rx [HYDROcodone-Homatropine Syr 5/1.5 mg/5ml] Insulin NPH Hum/Reg Insulin Hm 30 units SUB-Q QPM 03/03/13 04/24/19 03/03/13 02:00 History [HumuLIN 70-30 Vial] Insulin NPH Hum/Reg Insulin Hm 40 units SUB-Q QAM 03/03/13 04/24/19 03/03/13 11:30 History [HumuLIN 70-30 Vial] Multivitamin [Multi-Vitamin Daily] 1 tab PO QDAY 03/03/13 04/24/19 03/03/13 02:00 History Apixaban [Eliquis] 5 mg PO BID 04/24/19 04/24/19 Unknown History ALBUTEROL Inhaler (OR & NICU) 2 puff IH QID PRN 05/12/19 05/12/19 Unknown History [ProAir HFA Inhaler] Insulin Aspart (Nf) [NovoLOG See Protocol 05/12/19 Unknown History Flexpen] Metoprolol Tartrate 75 mg PO BID 05/12/19 05/12/19 Unknown History ED Physical Exam - General Limitations: Physical Limitation - Other Other exam information: General: No acute distress Head: Atraumatic Eyes: normal appearance ENT: Moist mucous membranes Neck: Normal appearance, no midline tenderness Chest: Bilateral wheezes with intermittent crackles right greater than left, cough noted productive of bloody sputum CV: Irregular rhythm Abdomen: Soft, normal bowel sounds, nontender, nondistended, no rebound or guarding Back: Normal inspection Extremity: Normal inspection, full range of motion, trace pitting lower extremity edema Neuro: Alert O x 3, no facial asymmetry, speech clear, no gross motor sensory deficit Psych: Appropriate behavior Skin: No rash ED Course Vital Signs 05/12/19 05/12/19 05/12/19 09:53 10:00 10:30 Temperature 98.0 F Pulse Rate 90 93 H 93 H Pulse Rate [ Posterior Bilateral Throughout] Respiratory 16 18 19 Rate Respiratory Rate [Posterior Bilateral Throughout] Blood Pressure 105/66 129/63 O2 Sat by Pulse 100 99 96 Oximetry 05/12/19 05/12/19 05/12/19 11:00 11:30 11:54 Temperature Pulse Rate 91 H 91 H Pulse Rate [ 95 H Posterior Bilateral Throughout] Respiratory 16 19 Rate Respiratory 20 Rate [Posterior Bilateral Throughout] Blood Pressure 105/66 123/71 O2 Sat by Pulse 97 Oximetry 05/12/19 05/12/19 12:00 12:30 Temperature Pulse Rate 93 H 101 H Pulse Rate [ Posterior Bilateral Throughout] Respiratory 19 24 Rate Respiratory Rate [Posterior Bilateral Throughout] Blood Pressure 133/80 129/56 O2 Sat by Pulse 95 Oximetry ED Medical Decision Making - Lab Data Result diagrams: 05/12/19 11:09 05/12/19 11:09 Lab Results 05/12/19 05/12/19 05/12/19 Range/Units 11:09 11:09 11:09 WBC 8.5 (4.5-11.0) K/mm3 RBC 4.03 (3.65-5.03) M/mm3 Hgb 12.8 (10.1-14.3) gm/dl Hct 39.0 (30.3-42.9) % MCV 97 (79-97) fl MCH 32 (28-32) pg MCHC 33 (30-34) % RDW 14.9 (13.2-15.2) % Plt Count 188 (140-440) K/mm3 Lymph % (Auto) 7.5 L (13.4-35.0) % [place] % (Auto) 6.3 (0.0-7.3) % Eos % (Auto) 0.3 (0.0-4.3) % Baso % (Auto) 0.3 (0.0-1.8) % Lymph # 0.6 L (1.2-5.4) K/mm3 [place] # 0.5 (0.0-0.8) K/mm3 Eos # 0.0 (0.0-0.4) K/mm3 Baso # 0.0 (0.0-0.1) K/mm3 Seg Neutrophils % 85.6 H (40.0-70.0) % Seg Neutrophils # 7.3 (1.8-7.7) K/mm3 PT 14.3 (12.2-14.9) Sec. INR 1.10 (0.87-1.13) APTT 29.8 (24.2-36.6) Sec. Sodium 143 (137-145) mmol/L Potassium 4.1 (3.6-5.0) mmol/L Chloride 105.2 (98-107) mmol/L Carbon Dioxide 22 (22-30) mmol/L Anion Gap 20 mmol/L BUN 11 (7-17) mg/dL Creatinine 0.7 (0.7-1.2) mg/dL Estimated GFR > 60 ml/min BUN/Creatinine Ratio 16 % Glucose 180 H (65-100) mg/dL Calcium 8.8 (8.4-10.2) mg/dL NT-Pro-B Natriuret Pep 1874 H (0-900) pg/mL - EKG Data -: EKG Interpreted by Me (atrial fibrillation) EKG shows normal: ST-T waves (no stemi) Rate: normal (86) - EKG Data When compared to previous EKG there are: no significant change - Radiology Data Radiology results: report reviewed CHEST 2 VIEWS INDICATION: sob, cough. COMPARISON: 04/24/2019 FINDINGS: Support devices: None. Heart: Within normal limits. Lungs: Interval development airspace process right lung. Pleura: No significant pleural effusion. No pneumothorax. A dditional findings: None. IMPRESSION: 1. Airspace process right lung, most consistent with pneumonia - Medical Decision Making Patient has worsening her chest x-ray suggestive of pneumonia. Patient also has wheezing on exam. Patient provided antibiotics to cover for hospital-acquired pneumonia, steroids, and bronchodilators has nebulized treatments. Hospitalist informed for admission - Differential Diagnosis pneumonia, CHF, bronchitis, reactive airway disease, viral syndrome Critical Care Time: No Critical care attestation.: If time is entered above; I have spent that time in minutes in the direct care of this critically ill patient, excluding procedure time. ED Disposition Clinical Impression: Pneumonia, Cough with hemoptysis, History of obstructive sleep apnea, CHF (congestive heart failure), Atrial fibrillation, Anticoagulant long-term use, Wheezing Disposition: OP ADMIT IP TO THIS HOSP Is pt being admited?: Yes Condition: Stable Time of Disposition: 13:01 (Dr Davila/hosp)
--- NOTE | 2019-05-12 13:14 | History and Physical Report ---
History of Present Illness Chief complaint: Cough and hemoptysis History of present illness: 63-year-old woman who presents to the hospital complaining of shortness of breath and cough. She was seen in the hospital a few weeks ago. She was treated for atrial fibrillation, she now presents back to the hospital with c ough productive of thick sputum, and blood-tinged sputum. She takes Eliquis for chronic A. fib at home -Patient states that she had a cold for week after which she then began coughing bloodstained sputum -She is complaining of malaise, weakness. Symptoms have been progressive now x2 days. She is compliant with her medications at home. Past Medical History: atrial fib, diabetes, hypertension, other (Obstructive sleep apnea, morbid obesity, sciatica and degenerative disc disease.) Past Surgical History: hernia repair (Umbilical hernia repair), Other (Catheter ablation for A. fib, lap band, carpal tunnel surgery) Social history: smoking (Patient is a former smoker) Family history: cancer (Sister had ovarian cancer, grandmother had colon cancer.), diabetes (Mother had diabetes mellitus,) Medications and Allergies Allergies Allergy/AdvReac Type Severity Reaction Status Date / Time duloxetine [From Cymbalta] Allergy Unknown Verified 04/24/19 15:38 ibuprofen Allergy Unknown Verified 04/24/19 15:38 lisinopril Allergy Swelling Verified 04/24/19 15:38 Home Medications Medication Instructions Recorded Confirmed Last Taken Type Calcium Carbonate [Calcium] 1 mg PO BID 03/03/13 05/12/19 03/03/13 02:00 History Gabapentin 300 mg PO QDAY 03/03/13 05/12/19 03/03/13 02:00 History Hydrocodone Bit/Homatrop Me-Br 5 ml PO Q4H PRN #80 ml 03/03/13 05/12/19 Unknown Rx [HYDROcodone-Homatropine Syr 5/1.5 mg/5ml] Insulin NPH Hum/Reg Insulin Hm 30 units SUB-Q QPM 03/03/13 05/12/19 03/03/13 02:00 History [HumuLIN 70-30 Vial] Insulin NPH Hum/Reg Insulin Hm 40 units SUB-Q QAM 03/03/13 05/12/19 03/03/13 11:30 History [HumuLIN 70-30 Vial] Multivitamin [Multi-Vitamin Daily] 1 tab PO QDAY 03/03/13 05/12/19 03/03/13 02:00 History Apixaban [Eliquis] 5 mg PO BID 04/24/19 05/12/19 Unknown History ALBUTEROL Inhaler (OR & NICU) 2 puff IH QID PRN 05/12/19 05/12/19 Unknown History [ProAir HFA Inhaler] Insulin Aspart (Nf) [NovoLOG See Protocol SQ QACHS 05/12/19 05/12/19 Unknown History Flexpen] Metoprolol Tartrate 75 mg PO BID 05/12/19 05/12/19 Unknown History Active Meds: Active Medications Vancomycin HCl 2,000 mg/ (Sodium Chloride) 540 mls @ 270 mls/hr IV ONCE ONE; Protocol Stop: 05/12/19 13:59 Cefepime HCl (Cefepime/Ns 2 Gm/100 Ml) 2 gm in 100 mls @ 200 mls/hr IV Q8H RADHA; Protocol Last Admin: 05/12/19 12:18 Dose: 200 mls/hr Documented by: Review of Systems All systems: negative (cough, fever, sob, hemoptysis, malaise, wheezing,) Exam - Constitutional Vitals: Temp Pulse Resp BP Pulse Ox 98.0 F 101 H 24 129/56 95 05/12/19 09:53 05/12/19 12:30 05/12/19 12:30 05/12/19 12:30 05/12/19 12:00 General appearance: Present: mild distress, obese - EENT Eyes: Present: PERRL ENT: hearing intact, clear oral mucosa - Neck Neck: Present: supple, normal ROM - Respiratory Respiratory effort: normal Respiratory: bilateral: diminished, wheezing - Cardiovascular Heart Sounds: Present: S1 & S2. Absent: rub, click - Extremities Extremities: pulses symmetrical, No edema Peripheral Pulses: within normal limits - Abdominal General gastrointestinal: Present: soft, non-tender, non-distended, normal bowel sounds Female genitourinary: Present: normal - Integumentary Integumentary: Present: clear, warm, dry - Musculoskeletal Musculoskeletal: gait normal, strength equal bilaterally - Psychiatric Psychiatric: appropriate mood/affect, intact judgment & insight - Neurologic Neurologic: CNII-XII intact, moves all extremities Results - Labs CBC & Chem 7: 05/13/19 09:13 05/13/19 09:13 Labs: Laboratory Last Values WBC 8.5 K/mm3 (4.5-11.0) 05/12/19 11:09 RBC 4.03 M/mm3 (3.65-5.03) 05/12/19 11:09 Hgb 12.8 gm/dl (10.1-14.3) 05/12/19 11:09 Hct 39.0 % (30.3-42.9) 05/12/19 11:09 MCV 97 fl (79-97) 05/12/19 11:09 MCH 32 pg (28-32) 05/12/19 11:09 MCHC 33 % (30-34) 05/12/19 11:09 RDW 14.9 % (13.2-15.2) 05/12/19 11:09 Plt Count 188 K/mm3 (140-440) 05/12/19 11:09 Lymph % (Auto) 7.5 % (13.4-35.0) L 05/12/19 11:09 [place] % (Auto) 6.3 % (0.0-7.3) 05/12/19 11:09 Eos % (Auto) 0.3 % (0.0-4.3) 05/12/19 11:09 Baso % (Auto) 0.3 % (0.0-1.8) 05/12/19 11:09 Lymph # 0.6 K/mm3 (1.2-5.4) L 05/12/19 11:09 [place] # 0.5 K/mm3 (0.0-0.8) 05/12/19 11:09 Eos # 0.0 K/mm3 (0.0-0.4) 05/12/19 11:09 Baso # 0.0 K/mm3 (0.0-0.1) 05/12/19 11:09 Seg Neutrophils % 85.6 % (40.0-70.0) H 05/12/19 11:09 Seg Neutrophils # 7.3 K/mm3 (1.8-7.7) 05/12/19 11:09 PT 14.3 Sec. (12.2-14.9) 05/12/19 11:09 INR 1.10 (0.87-1.13) 05/12/19 11:09 APTT 29.8 Sec. (24.2-36.6) 05/12/19 11:09 Sodium 143 mmol/L (137-145) 05/12/19 11:09 Potassium 4.1 mmol/L (3.6-5.0) 05/12/19 11:09 Chloride 105.2 mmol/L (98-107) 05/12/19 11:09 Carbon Dioxide 22 mmol/L (22-30) 05/12/19 11:09 Anion Gap 20 mmol/L 05/12/19 11:09 BUN 11 mg/dL (7-17) 05/12/19 11:09 Creatinine 0.7 mg/dL (0.7-1.2) 05/12/19 11:09 Estimated GFR > 60 ml/min 05/12/19 11:09 BUN/Creatinine Ratio 16 % 05/12/19 11:09 Glucose 180 mg/dL (65-100) H 05/12/19 11:09 Calcium 8.8 mg/dL (8.4-10.2) 05/12/19 11:09 NT-Pro-B Natriuret Pep 1874 pg/mL (0-900) H 05/12/19 11:09 Assessment and Plan Assessment and plan: 63-year-old woman who presents to the hospital with pneumonia Chest x-ray shows airspace disease on the right side most consistent with pneumonia which was not previously present 2 weeks ago Patient had recent echo a few weeks ago which showed preserved EF Pneumonia, sepsis IV antibiotics, ID consult Continue home medications Hemoptysis Most likely due to anticoagulants. Patient is coughing consistently due to pneumonia Diabetes Consistent carbohydrate diet, sliding scale insulin, check A1c Chronic A. fib with hypercoagulable state Rate is controlled, continue metoprolol and Eliquis Copd exacerbation; steroids, nebs, pulmonology consults, aggressive chest PT JHONNY Has not been using at home because is an old machine does not work well CPAP nightly, case management consult for home CPAP Preventative health counseling performed for 17 minutes
[2019-05-12] MEDS ORDERED: ONDANSETRON 4 MG/2 ML INJ IV PRN (13:15)
[2019-05-12] MEDS ORDERED: DEXTROSE 50% IN WATER (25GM) 50 ML SYRINGE IV PRN (13:15)
--- NOTE | 2019-05-12 15:41 | Consultation ---
History of Present Illness - Reason for Consult Consult date: 05/12/19 Pneumonia Requesting physician: KAYLI TOLBERT - History of Present Illness The patient is a 63-year-old female with diabetes mellitus, hypertension, atrial fibrillation on anticoagulation, sleep apnea, recent hospitalization with CHF came into the emergency room today with complaints of cough and shortness of breath along with expectoration of bloody sputum. She has not been feeling well for the last 1 week, initially started as a cold. Over the last 2-3 days, started getting cough with worsening shortness of breath and today she coughed up blood and hence she came in. Chest x-ray shows right-sided pneumonia. She did not get the flu shot this year. Infectious diseases was consulted for antibiotic recommendations. Review of Systems: General: no fevers but + for chills HEENT: no new visual disturbance Respiratory: + cough, sputum, hemoptysis and shortness of breath Cardiovascular: No chest pain, syncope Gastrointestinal: No nausea, vomiting or diarrhea Genitourinary: No dysuria or hematuria Musculoskeletal: No new or worsening neck pain or back pain Neurologic: No headaches, seizures Hematologic: No easy bruising or bleeding Endocrine: No night sweats or acute weight loss Skin: negative for rash, jaundice Psychiatric: No suicidal or homicidal ideation Medications and Allergies Allergies Allergy/AdvReac Type Severity Reaction Status Date / Time duloxetine [From Cymbalta] Allergy Unknown Verified 04/24/19 15:38 ibuprofen Allergy Unknown Verified 04/24/19 15:38 lisinopril Allergy Swelling Verified 04/24/19 15:38 Home Medications Medication Instructions Recorded Confirmed Last Taken Type Calcium Carbonate [Calcium] 1 mg PO BID 03/03/13 05/12/19 03/03/13 02:00 History Gabapentin 300 mg PO QDAY 03/03/13 05/12/19 03/03/13 02:00 History Hydrocodone Bit/Homatrop Me-Br 5 ml PO Q4H PRN #80 ml 03/03/13 05/12/19 Unknown Rx [HYDROcodone-Homatropine Syr 5/1.5 mg/5ml] Insulin NPH Hum/Reg Insulin Hm 30 units SUB-Q QPM 03/03/13 05/12/19 03/03/13 02:00 History [HumuLIN 70-30 Vial] Insulin NPH Hum/Reg Insulin Hm 40 units SUB-Q QAM 03/03/13 05/12/19 03/03/13 11:30 History [HumuLIN 70-30 Vial] Multivitamin [Multi-Vitamin Daily] 1 tab PO QDAY 03/03/13 05/12/19 03/03/13 02:00 History Apixaban [Eliquis] 5 mg PO BID 04/24/19 05/12/19 Unknown History ALBUTEROL Inhaler (OR & NICU) 2 puff IH QID PRN 05/12/19 05/12/19 Unknown History [ProAir HFA Inhaler] Insulin Aspart (Nf) [NovoLOG See Protocol 05/12/19 Unknown History Flexpen] Metoprolol Tartrate 75 mg PO BID 05/12/19 05/12/19 Unknown History Active Meds: Active Medications Acetaminophen (Tylenol) 650 mg PO Q4H PRN PRN Reason: Pain MILD(1-3)/Fever >100.5/ORTIZ Apixaban (Eliquis) 5 mg PO BID RADHA; Protocol Calcium Carbonate/Glycine (Oscal) 1,250 mg PO BID [facility] Dextrose (D50w (25gm) Syringe) 50 ml IV Q30MIN PRN; Protocol PRN Reason: Hypoglycemia Hydrocodone Bit/Homatropine Methylb (Hydromet) 5 ml PO Q4H PRN PRN Reason: Cough Azithromycin 500 mg/ Sodium (Chloride) 250 mls @ 250 mls/hr IV Q24HR RADHA; Protocol Ceftriaxone Sodium (Rocephin/Ns 2 Gm/100 Ml) 2 gm in 100 mls @ 200 mls/hr IV Q24HR [facility] Insulin Human Lispro (Humalog) 0 unit SUB-Q ACHS RADHA; Protocol Metoprolol Tartrate (Metoprolol) 75 mg PO BID [facility] Multivitamins (Theragran Tab) 1 each PO DAILY [facility] Ondansetron HCl (Zofran) 4 mg IV Q8H PRN PRN Reason: Nausea And Vomiting Sodium Chloride (Sodium Chloride Flush Syringe 10 Ml) 10 ml IV BID [facility] Sodium Chloride (Sodium Chloride Flush Syringe 10 Ml) 10 ml IV PRN PRN PRN Reason: LINE FLUSH Physical Examination - Physical Exam Narrative exam: Physical Exam: Constitutional: Alert, cooperative. No acute distress. Morbidly obese Head, Ears, Nose: Normocephalic, atraumatic. External ears, nose normal Eyes: Conjunctivae/corneas clear. No icterus. No ptosis. Neck: Supple, no meningeal signs Oral: no thrush Cardiovascular: S1, S2 normal Respiratory: R sided rhonchi + GI: Soft, non-tender; bowel sounds normal. No peritoneal signs Musculoskeletal: trace pedal edema Skin: No rash or abscess Hem/Lymphatic: No palpable cervical or supraclavicular nodes. No lymphangitis Psych: Mood ok. Affect normal Neurological: Awake, alert, oriented. No gross abnormality - Constitutional Vitals: Vital Signs Temp Pulse Resp BP Pulse Ox 98.0 F 115 H 29 H 146/45 96 05/12/19 09:53 05/12/19 13:31 05/12/19 13:31 05/12/19 13:31 05/12/19 13:00 Temperature -Last 24 Hours Temperature 98.0 F Results - Labs CBC & Chem 7: 05/12/19 11:09 05/12/19 11:09 Labs: Abnormal lab results 05/12/19 05/12/19 05/12/19 Range/Units 11:09 11:09 11:09 Lymph % (Auto) 7.5 L (13.4-35.0) % Lymph # 0.6 L (1.2-5.4) K/mm3 Seg Neutrophils % 85.6 H (40.0-70.0) % D-Dimer 369.18 H (0-234) ng/mlDDU Glucose 180 H (65-100) mg/dL NT-Pro-B Natriuret Pep 1874 H (0-900) pg/mL - Imaging and Cardiology Chest x-ray: report reviewed, image reviewed (R sided pneumonia +) Assessment and Plan Cultures: 05/12/2019 blood culture: In process. A/P: 63-year-old female with diabetes mellitus, hypertension, atrial fibrillation on anticoagulation, sleep apnea, recent hospitalization with CHF admitted with: #Right-sided pneumonia, possible influenza versus post-influenza pneumonia, acute respiratory failure #Diabetes mellitus type 2 #Atrial fibrillation, on anticoagulation #Morbid obesity Recs: Empiric ceftriaxone, azithromycin, Tamiflu Added IV vancomycin due to risk factors for MRSA pneumonia Influenza PCR, nasal MRSA PCR, sputum culture ordered Will follow. Jeb Azar MD, FACP [facility] C: [phone] O: [phone] F: [phone]
[2019-05-12] MEDS ORDERED: VANCOMYCIN PHARMACY TO DOSE IV SCH (16:00)
[2019-05-12] MEDS: cefTRIAXone/NS 2 GM/100 ML 2 GM/100 ML BAG IV SCH (17:17)
[2019-05-12] MEDS: AZITHROMYCIN 500 MG in SODIUM CHLORIDE 0.9% 250ML 250 ML IV SCH (17:49)
[2019-05-12] MEDS: OSELTAMIVIR 75 MG CAP PO SCH ×2 (17:52→21:42)
[2019-05-12] MEDS: INSULIN LISPRO 100 UNIT/ML SUB-Q SCH ×2 (17:52→22:53)
[2019-05-12] MEDS ORDERED: TEMAZEPAM 15 MG CAP PO PRN (21:27)
[2019-05-12] MEDS: APIXABAN 5 MG TAB PO SCH (21:42)
[2019-05-12] MEDS: VANCOMYCIN 2,000 MG in SODIUM CHLORIDE 0.9% 500 ML 500 ML IV SCH (21:42)
[2019-05-12] MEDS: METOPROLOL TARTRATE 50 MG TAB PO SCH (21:43)
[2019-05-12] MEDS: CALCIUM CARBONATE 1250 MG TAB PO SCH (21:43)
[2019-05-12] MEDS ORDERED: METOPROLOL TARTRATE 75 MG PO SCH (22:00)
[2019-05-12] MEDS: methylPREDNISolone Sod Succinate 40 MG/1 ML INJ IV SCH (22:53)
[2019-05-13] MEDS: IPRATROPIUM/ALBUTEROL SULFATE 3 ML AMPUL.NEB IH SCH ×4 (03:32→20:51)
[2019-05-13] MEDS: methylPREDNISolone Sod Succinate 40 MG/1 ML INJ IV SCH ×3 (05:57→22:54)
[2019-05-13] MEDS: VANCOMYCIN 2,000 MG in SODIUM CHLORIDE 0.9% 500 ML 500 ML IV SCH ×2 (05:57→18:18)
[2019-05-13] MEDS: BUDESONIDE 0.5 MG/2 ML NEBU IH SCH ×2 (07:49→20:51)
[2019-05-13] MEDS: INSULIN LISPRO 100 UNIT/ML SUB-Q SCH ×4 (08:00→23:28)
[2019-05-13] MEDS ORDERED: cefTRIAXone/NS 1 GM/50 ML 1 GM/50 ML BAG IV SCH (10:00)
[2019-05-13] MEDS ORDERED: MULTIVITAMIN PO SCH (10:00)
[2019-05-13 10:39] LABS: Hematocrit 38.4 % (30.3-42.9); Hemoglobin 12.5 gm/dl (10.1-14.3); Mean Corpuscular HGB Conc 33 % (30-34); Mean Corpuscular Volume 96 fl (79-97); Platelet Count 194 K/mm3 (140-440); Red Blood Count 3.99 M/mm3 (3.65-5.03); Red Cell Distribution Width 14.8 % (13.2-15.2)
[2019-05-13 10:40] LABS: BUN/Creatinine Ratio 20; Blood Urea Nitrogen 12 mg/dL (7-17); Calcium 8.7 mg/dL (8.4-10.2); HDL Cholesterol 50 mg/dL (40-59); Hemolysis Index 16; LDL Cholesterol,Direct 34 mg/dL (50-130)
[2019-05-13] MEDS: APIXABAN 5 MG TAB PO SCH ×2 (11:46→22:54)
[2019-05-13] MEDS: METOPROLOL TARTRATE 50 MG TAB PO SCH ×2 (11:46→22:54)
[2019-05-13] MEDS: CALCIUM CARBONATE 1250 MG TAB PO SCH ×2 (11:46→22:54)
[2019-05-13 11:47] LABS: Band Neutrophils # (Manual) 10.7 K/mm3; Basophils % (Manual) 0 % (0.0-1.8); Eosinophils % (Manual) 0 % (0.0-4.3); Monocytes % (Manual) 0 % (0.0-7.3); Platelet Estimate Consistent w Auto; RBC Morphology Normal; Total Cells Counted 100
[2019-05-13] MEDS: OSELTAMIVIR 75 MG CAP PO SCH ×2 (11:47→22:54)
[2019-05-13] MEDS: MULTIVITAMINS ,THERAPEUTIC TAB PO SCH (11:47)
[2019-05-13] MEDS: cefTRIAXone/NS 2 GM/100 ML 2 GM/100 ML BAG IV SCH (11:48)
[2019-05-13] MEDS ORDERED: FLU VACC QUAD 2019-20 (3 YR UP)/PF 60 MCG/0.5 ML SYRINGE IM ONE (12:00)
--- NOTE | 2019-05-13 14:47 | Progress Note ---
Assessment and Plan Cultures: 05/12/2019 blood culture: no growth Influenza B positive A/P: 63-year-old female with diabetes mellitus, hypertension, atrial fibrillation on anticoagulation, sleep apnea, recent hospitalization with CHF admitted with: #Right-sided pneumonia, Influenza B, possible post-influenza pneumonia, acute respiratory failure #Diabetes mellitus type 2 #Atrial fibrillation, on anticoagulation #Morbid obesity Recs: Influenza B positive, continue Tamiflu Azithromycin d/jade continue empiric ceftriaxone and IV vancomycin due to risk factors for MRSA pneumonia f/u nasal MRSA PCR, sputum culture ordered Will follow. Jeb Azar MD, FACP [facility] C: [phone] O: [phone] F: [phone] Subjective Date of service: 05/13/19 Interval history: No fever. Feeling a little better today. Cough and shortness of breath slightly improved. Objective - Exam Narrative Exam: Physical Exam: Constitutional: Alert, cooperative. No acute distress. Morbidly obese Head, Ears, Nose: Normocephalic, atraumatic. External ears, nose normal Eyes: Conjunctivae/corneas clear. No icterus. No ptosis. Neck: Supple, no meningeal signs Oral: no thrush Cardiovascular: S1, S2 normal Respiratory: occasional R sided rhonchi + GI: Soft, non-tender; bowel sounds normal. No peritoneal signs Musculoskeletal: trace pedal edema Skin: No rash or abscess Hem/Lymphatic: No palpable cervical or supraclavicular nodes. No lymphangitis Psych: Mood ok. Affect normal Neurological: Awake, alert, oriented. No gross abnormality - Constitutional Vitals: Vital Signs Temp Pulse Resp BP Pulse Ox 97.3 F L 80 18 138/81 99 05/13/19 12:21 05/13/19 13:51 05/13/19 13:51 05/13/19 12:21 05/13/19 13:52 Temperature -Last 24 Hours Temperature 97.3 F Temperature 97.6 F Temperature 97.5 F Temperature 98.6 F - Labs CBC & Chem 7: 05/13/19 09:13 05/13/19 09:13 Labs: Abnormal lab results 05/12/19 05/12/19 05/12/19 Range/Units 16:30 16:40 21:41 WBC (4.5-11.0) K/mm3 Seg Neuts % (Manual) (40.0-70.0) % Lymphocytes % (Manual) (13.4-35.0) % Nucleated RBC % (0.0-0.9) % Lymphocytes # (Manual) (1.2-5.4) K/mm3 Creatinine (0.7-1.2) mg/dL Glucose (65-100) mg/dL POC Glucose 274 H 294 H (70-105) Hemoglobin A1c (4-6) % LDL Cholesterol Direct (50-130) mg/dL Influenza B (RT-PCR) Positive A (Negative) 05/13/19 05/13/19 05/13/19 Range/Units 09:13 09:13 09:13 WBC 14.9 H (4.5-11.0) K/mm3 Seg Neuts % (Manual) 27.0 L (40.0-70.0) % Lymphocytes % (Manual) 1.0 L (13.4-35.0) % Nucleated RBC % 6.0 H (0.0-0.9) % Lymphocytes # (Manual) 0.1 L (1.2-5.4) K/mm3 Creatinine 0.6 L (0.7-1.2) mg/dL Glucose 290 H (65-100) mg/dL POC Glucose (70-105) Hemoglobin A1c 7.6 H (4-6) % LDL Cholesterol Direct 34 L (50-130) mg/dL Influenza B (RT-PCR) (Negative) 05/13/19 Range/Units 13:22 WBC (4.5-11.0) K/mm3 Seg Neuts % (Manual) (40.0-70.0) % Lymphocytes % (Manual) (13.4-35.0) % Nucleated RBC % (0.0-0.9) % Lymphocytes # (Manual) (1.2-5.4) K/mm3 Creatinine (0.7-1.2) mg/dL Glucose (65-100) mg/dL POC Glucose 296 H (70-105) Hemoglobin A1c (4-6) % LDL Cholesterol Direct (50-130) mg/dL Influenza B (RT-PCR) (Negative)
[2019-05-13] MEDS: AZITHROMYCIN 500 MG in SODIUM CHLORIDE 0.9% 250ML 250 ML IV SCH (14:54)
--- NOTE | 2019-05-13 15:44 | Progress Note ---
Assessment and Plan Assessment and plan: Patient is 63-year-old woman with a history of afib on Eliquis, type 2 DM and hypertension who presents to the hospital with pneumonia * Chest x-ray shows airspace disease on the right side most consistent with pneumonia which was not previously present 2 weeks ago Influenza A Right aspiration Pneumonia, sepsis IV antibiotics, ID consult Continue home medications Hemoptysis Most likely due to anticoagulants. Patient is coughing consistently due to pneumonia Diabetes Consistent carbohydrate diet, sliding scale insulin, check A1c Chronic A. fib with hypercoagulable state Rate is controlled, continue metoprolol and Eliquis Acute Copd exacerbation; steroids, nebs, pulmonology consults, aggressive chest PT JHONNY Has not been using at home because is an old machine does not work well CPAP nightly, case management consult for home CPAP Morbid obesity, BMI 73.0 [employer] on weight reduction, she had gastric sleeve in 2018 and lost 75-80 lbs but gradually gained it all back in 2019, we talk about re-tightening the olive suze sleeve, she will inquire DVT ppx on Eliquis History Interval history: Patient was seen and examined. Follow-up on current diagnosis Influenza pneumonia. Overnight uneventful as no events directly reported to me. Patient denies any chest pain, nausea/vomiting or severe headaches. Imaging, nursing note, chart, labs and old chart reviewed. Discussed with patient. Hospitalist Physical - Physical exam Narrative exam: Gen: WDWN, ill apearing mild increase assessory muscles Awake, Alert, Orientated HEENT: NCAT, EOMI, PERRL, OP Clear Neck: supple, no adenopathy, no thyromegaly, no JVD CVS/Heart: RRR, normal S1S2, pulses present bilaterally Chest/Lungs:diminished and coarse right bs Symmetrical chest expansion, good air entry bilaterally GI/Abdomen: soft, NTND, good bowel sounds, no guarding or rebound /Bladder: no suprapubic tenderness, no CVA or paraspinal tenderness Extermity/Skin: no c/c/e, no obvious rash MSK: FROM x 4 Neuro: CN 2-12 grossly intact, no new focal deficits Psych: calm - Constitutional Vitals: Temp Pulse Resp BP Pulse Ox 97.3 F L 80 18 138/81 99 05/13/19 12:21 05/13/19 13:51 05/13/19 13:51 05/13/19 12:21 05/13/19 13:52 Results - Labs CBC & Chem 7: 05/13/19 09:13 05/13/19 09:13 Labs: Laboratory Last Values WBC 14.9 K/mm3 (4.5-11.0) H 05/13/19 09:13 RBC 3.99 M/mm3 (3.65-5.03) 05/13/19 09:13 Hgb 12.5 gm/dl (10.1-14.3) 05/13/19 09:13 Hct 38.4 % (30.3-42.9) 05/13/19 09:13 MCV 96 fl (79-97) 05/13/19 09:13 MCH 32 pg (28-32) 05/13/19 09:13 MCHC 33 % (30-34) 05/13/19 09:13 RDW 14.8 % (13.2-15.2) 05/13/19 09:13 Plt Count 194 K/mm3 (140-440) 05/13/19 09:13 Lymph % (Auto) 7.5 % (13.4-35.0) L 05/12/19 11:09 [place] % (Auto) 6.3 % (0.0-7.3) 05/12/19 11:09 Eos % (Auto) 0.3 % (0.0-4.3) 05/12/19 11:09 Baso % (Auto) 0.3 % (0.0-1.8) 05/12/19 11:09 Lymph # 0.6 K/mm3 (1.2-5.4) L 05/12/19 11:09 [place] # 0.5 K/mm3 (0.0-0.8) 05/12/19 11:09 Eos # 0.0 K/mm3 (0.0-0.4) 05/12/19 11:09 Baso # 0.0 K/mm3 (0.0-0.1) 05/12/19 11:09 Add Manual Diff Complete 05/13/19 09:13 Total Counted 100 05/13/19 09:13 Seg Neutrophils % Certified Technician Specialist 05/13/19 09:13 Seg Neuts % (Manual) 27.0 % (40.0-70.0) L 05/13/19 09:13 Band Neutrophils % 72.0 % 05/13/19 09:13 Lymphocytes % (Manual) 1.0 % (13.4-35.0) L 05/13/19 09:13 Reactive Lymphs % (Man) 0 % 05/13/19 09:13 Monocytes % (Manual) 0 % (0.0-7.3) 05/13/19 09:13 Eosinophils % (Manual) 0 % (0.0-4.3) 05/13/19 09:13 Basophils % (Manual) 0 % (0.0-1.8) 05/13/19 09:13 Metamyelocytes % 0 % 05/13/19 09:13 Myelocytes % 0 % 05/13/19 09:13 Promyelocytes % 0 % 05/13/19 09:13 Blast Cells % 0 % 05/13/19 09:13 Nucleated RBC % 6.0 % (0.0-0.9) H 05/13/19 09:13 Seg Neutrophils # 7.3 K/mm3 (1.8-7.7) 05/12/19 11:09 Seg Neutrophils # Man 4.0 K/mm3 (1.8-7.7) 05/13/19 09:13 Band Neutrophils # 10.7 K/mm3 05/13/19 09:13 Lymphocytes # (Manual) 0.1 K/mm3 (1.2-5.4) L 05/13/19 09:13 Abs React Lymphs (Man) 0.0 K/mm3 05/13/19 09:13 Monocytes # (Manual) 0.0 K/mm3 (0.0-0.8) 05/13/19 09:13 Eosinophils # (Manual) 0.0 K/mm3 (0.0-0.4) 05/13/19 09:13 Basophils # (Manual) 0.0 K/mm3 (0.0-0.1) 05/13/19 09:13 Metamyelocytes # 0.0 K/mm3 05/13/19 09:13 Myelocytes # 0.0 K/mm3 05/13/19 09:13 Promyelocytes # 0.0 K/mm3 05/13/19 09:13 Blast Cells # 0.0 K/mm3 05/13/19 09:13 WBC Morphology Not Reportable 05/13/19 09:13 Hypersegmented Neuts Not Reportable 05/13/19 09:13 Hyposegmented Neuts Not Reportable 05/13/19 09:13 Hypogranular Neuts Not Reportable 05/13/19 09:13 Smudge Cells Not Reportable 05/13/19 09:13 Toxic Granulation Not Reportable 05/13/19 09:13 Toxic Vacuolation Not Reportable 05/13/19 09:13 Dohle Bodies Not Reportable 05/13/19 09:13 Pelger-Huet Anomaly Not Reportable 05/13/19 09:13 Maribeth Rods Not Reportable 05/13/19 09:13 Platelet Estimate Consistent w auto 05/13/19 09:13 Clumped Platelets Not Reportable 05/13/19 09:13 Plt Clumps, EDTA Not Reportable 05/13/19 09:13 Large Platelets Not Reportable 05/13/19 09:13 Giant Platelets Not Reportable 05/13/19 09:13 Platelet Satelliting Not Reportable 05/13/19 09:13 Plt Morphology Comment Not Reportable 05/13/19 09:13 RBC Morphology Normal 05/13/19 09:13 Dimorphic RBCs Not Reportable 05/13/19 09:13 Polychromasia Not Reportable 05/13/19 09:13 Hypochromasia Not Reportable 05/13/19 09:13 Poikilocytosis Not Reportable 05/13/19 09:13 Anisocytosis Not Reportable 05/13/19 09:13 Microcytosis Not Reportable 05/13/19 09:13 Macrocytosis Not Reportable 05/13/19 09:13 Spherocytes Not Reportable 05/13/19 09:13 Pappenheimer Bodies Not Reportable 05/13/19 09:13 Sickle Cells Not Reportable 05/13/19 09:13 Target Cells Not Reportable 05/13/19 09:13 Tear Drop Cells Not Reportable 05/13/19 09:13 Ovalocytes Not Reportable 05/13/19 09:13 Helmet Cells Not Reportable 05/13/19 09:13 [place] Bodies Not Reportable 05/13/19 09:13 [place] Rings Not Reportable 05/13/19 09:13 [place] Cells Not Reportable 05/13/19 09:13 Bite Cells Not Reportable 05/13/19 09:13 Crenated Cell Not Reportable 05/13/19 09:13 Elliptocytes Not Reportable 05/13/19 09:13 Acanthocytes (Spur) Not Reportable 05/13/19 09:13 Rouleaux Not Reportable 05/13/19 09:13 Hemoglobin C Crystals Not Reportable 05/13/19 09:13 Schistocytes Not Reportable 05/13/19 09:13 Malaria parasites Not Reportable 05/13/19 09:13 Kahlil Bodies Not Reportable 05/13/19 09:13 Hem Pathologist Commnt No 05/13/19 09:13 PT 14.3 Sec. (12.2-14.9) 05/12/19 11:09 INR 1.10 (0.87-1.13) 05/12/19 11:09 APTT 29.8 Sec. (24.2-36.6) 05/12/19 11:09 D-Dimer 369.18 ng/mlDDU (0-234) H 05/12/19 11:09 Sodium 141 mmol/L (137-145) 05/13/19 09:13 Potassium 4.6 mmol/L (3.6-5.0) 05/13/19 09:13 Chloride 104.4 mmol/L (98-107) 05/13/19 09:13 Carbon Dioxide 22 mmol/L (22-30) 05/13/19 09:13 Anion Gap 19 mmol/L 05/13/19 09:13 BUN 12 mg/dL (7-17) 05/13/19 09:13 Creatinine 0.6 mg/dL (0.7-1.2) L 05/13/19 09:13 Estimated GFR > 60 ml/min 05/13/19 09:13 BUN/Creatinine Ratio 20 % 05/13/19 09:13 Glucose 290 mg/dL (65-100) H 05/13/19 09:13 POC Glucose 296 (70-105) H 05/13/19 13:22 Hemoglobin A1c 7.6 % (4-6) H 05/13/19 09:13 Calcium 8.7 mg/dL (8.4-10.2) 05/13/19 09:13 NT-Pro-B Natriuret Pep 1874 pg/mL (0-900) H 05/12/19 11:09 Triglycerides 56 mg/dL (2-149) 05/13/19 09:13 Cholesterol 90 mg/dL (50-199) 05/13/19 09:13 LDL Cholesterol Direct 34 mg/dL (50-130) L 05/13/19 09:13 HDL Cholesterol 50 mg/dL (40-59) 05/13/19 09:13 Cholesterol/HDL Ratio 1.80 % 05/13/19 09:13 Influenza A (Rapid) Negative (Negative) 05/12/19 16:30 Influenza A (RT-PCR) Negative (Negative) 05/12/19 16:30 Influenza B (Rapid) Negative (Negative) 05/12/19 16:30 Influenza B (RT-PCR) Positive (Negative) A 05/12/19 16:30 Active Medications - Current Medications Current Medications: Generic Name Dose Route Start Last Admin Trade Name Freq PRN Reason Stop Dose Admin Acetaminophen 650 mg 05/12/19 13:15 Tylenol PO Q4H PRN Pain MILD(1-3)/Fever >100.5/ORTIZ Albuterol/Ipratropium 1 ampul 05/13/19 02:00 05/13/19 13:48 Duoneb *Not For Prn Use* IH 1 ampul Q6HRT RADHA Administration Apixaban 5 mg 05/12/19 22:00 05/13/19 11:46 Eliquis PO 5 mg BID RADHA Administration Protocol Budesonide 0.5 mg 05/13/19 08:00 05/13/19 07:49 Pulmicort IH 0.5 mg Q12HRT RADHA Administration Calcium Carbonate/Glycine 1,250 mg 05/12/19 22:00 05/13/19 11:46 Oscal PO 1,250 mg BID RADHA Administration Dextrose 50 ml 05/12/19 13:15 D50w (25gm) Syringe IV Q30MIN PRN Hypoglycemia Protocol Hydrocodone Bit/Homatropine Methylb 5 ml 05/12/19 13:27 Hydromet PO Q4H PRN Cough Ceftriaxone Sodium 2 gm in 100 mls @ 200 mls/hr 05/12/19 15:00 05/13/19 11:48 Rocephin/Ns 2 Gm/100 Ml IV 200 mls/hr Q24HR RADHA Administration Vancomycin HCl 2,000 mg/ 540 mls @ 250 mls/hr 05/12/19 22:00 05/13/19 05:57 Sodium Chloride IV 250 mls/hr Q8H RADHA Administration Insulin Human Lispro 0 unit 05/12/19 16:30 05/13/19 13:40 Humalog SUB-Q 4 unit ACHS RADHA Administration Protocol Methylprednisolone Sodium Succinate 40 mg 05/12/19 22:00 05/13/19 13:40 Solu-Medrol IV 40 mg Q8HR RADHA Administration Metoprolol Tartrate 75 mg 05/12/19 22:00 05/13/19 11:46 Metoprolol PO 75 mg BID RADHA Administration Multivitamins 1 each 05/13/19 10:00 05/13/19 11:47 Theragran Tab PO 1 each DAILY [facility] Administration Ondansetron HCl 4 mg 05/12/19 13:15 Zofran IV Q8H PRN Nausea And Vomiting Oseltamivir Phosphate 75 mg 05/12/19 17:00 05/13/19 11:47 Tamiflu PO 05/16/19 22:01 75 mg BID RADHA Administration Sodium Chloride 10 ml 05/12/19 22:00 05/13/19 11:51 Sodium Chloride Flush Syringe 10 Ml IV 10 ml BID RADHA Administration Sodium Chloride 10 ml 05/12/19 13:15 Sodium Chloride Flush Syringe 10 Ml IV PRN PRN LINE FLUSH Temazepam 15 mg 05/12/19 21:27 Restoril PO QHS PRN Sleep
[2019-05-13] MEDS: ACETAMINOPHEN 325 MG TAB PO PRN (22:54)
[2019-05-14] MEDS: VANCOMYCIN 2,000 MG in SODIUM CHLORIDE 0.9% 500 ML 500 ML IV SCH ×2 (02:25→06:59)
[2019-05-14] MEDS: IPRATROPIUM/ALBUTEROL SULFATE 3 ML AMPUL.NEB IH SCH ×4 (02:32→19:41)
[2019-05-14] MEDS: methylPREDNISolone Sod Succinate 40 MG/1 ML INJ IV SCH (06:58)
[2019-05-14] MEDS: BUDESONIDE 0.5 MG/2 ML NEBU IH SCH ×2 (07:08→19:41)
[2019-05-14 07:10] LABS: MRSA PCR Negative (Negative)
[2019-05-14] MEDS: HYDROcodone/HOMATROPINE 5-1.5MG /5 ML ORAL LIQD UNIT DOSE PO PRN (07:57)
--- NOTE | 2019-05-14 07:58 | Progress Note ---
Assessment and Plan Assessment and plan: Patient is 63-year-old woman with a history of afib on Eliquis, type 2 DM and hypertension who presents to the hospital with pneumonia * Chest x-ray shows airspace disease on the right side most consistent with pneumonia which was not previously present 2 weeks ago Influenza B Right aspiration Pneumonia, sepsis IV antibiotics, ID consult treat with Tamiflu day 3/5 Hemoptysis Most likely due to anticoagulants superimposed on pneumonia. Patient is c oughing consistently due to pneumonia resolved Diabetes mellitus type 2 with hyperglycemia complications Consistent carbohydrate diet, sliding scale insulin, A1c 7.6 Chronic A. 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 History Interval history: Patient was seen and examined. Follow-up on current diagnosis Influenza pneumonia. Overnight uneventful as no events directly reported to me. Patient denies any chest pain, nausea/vomiting or severe headaches. Imaging, nursing note, chart, labs and old chart reviewed. Discussed with patient. Hospitalist Physical - Physical exam Narrative exam: Gen: WDWN, ill apearing mild increase assessory muscles Awake, Alert, Orientated HEENT: NCAT, EOMI, PERRL, OP Clear Neck: supple, no adenopathy, no thyromegaly, no JVD CVS/Heart: RRR, normal S1S2, pulses present bilaterally Chest/Lungs:diminished and coarse right bs Symmetrical chest expansion, good air entry bilaterally GI/Abdomen: soft, NTND, good bowel sounds, no guarding or rebound /Bladder: no suprapubic tenderness, no CVA or paraspinal tenderness Extermity/Skin: no c/c/e, no obvious rash MSK: FROM x 4 Neuro: CN 2-12 grossly intact, no new focal deficits Psych: calm - Constitutional Vitals: Temp Pulse Resp BP Pulse Ox 98.7 F 87 20 154/84 98 05/14/19 04:57 05/14/19 07:08 05/14/19 07:08 05/14/19 04:57 05/14/19 07:08 General appearance: Present: obese Results - Labs CBC & Chem 7: 05/13/19 09:13 05/13/19 09:13 Labs: Laboratory Last Values WBC 14.9 K/mm3 (4.5-11.0) H 05/13/19 09:13 RBC 3.99 M/mm3 (3.65-5.03) 05/13/19 09:13 Hgb 12.5 gm/dl (10.1-14.3) 05/13/19 09:13 Hct 38.4 % (30.3-42.9) 05/13/19 09:13 MCV 96 fl (79-97) 05/13/19 09:13 MCH 32 pg (28-32) 05/13/19 09:13 MCHC 33 % (30-34) 05/13/19 09:13 RDW 14.8 % (13.2-15.2) 05/13/19 09:13 Plt Count 194 K/mm3 (140-440) 05/13/19 09:13 Lymph % (Auto) 7.5 % (13.4-35.0) L 05/12/19 11:09 [place] % (Auto) 6.3 % (0.0-7.3) 05/12/19 11:09 Eos % (Auto) 0.3 % (0.0-4.3) 05/12/19 11:09 Baso % (Auto) 0.3 % (0.0-1.8) 05/12/19 11:09 Lymph # 0.6 K/mm3 (1.2-5.4) L 05/12/19 11:09 [place] # 0.5 K/mm3 (0.0-0.8) 05/12/19 11:09 Eos # 0.0 K/mm3 (0.0-0.4) 05/12/19 11:09 Baso # 0.0 K/mm3 (0.0-0.1) 05/12/19 11:09 Add Manual Diff Complete 05/13/19 09:13 Total Counted 100 05/13/19 09:13 Seg Neutrophils % Registration Representative 05/13/19 09:13 Seg Neuts % (Manual) 27.0 % (40.0-70.0) L 05/13/19 09:13 Band Neutrophils % 72.0 % 05/13/19 09:13 Lymphocytes % (Manual) 1.0 % (13.4-35.0) L 05/13/19 09:13 Reactive Lymphs % (Man) 0 % 05/13/19 09:13 Monocytes % (Manual) 0 % (0.0-7.3) 05/13/19 09:13 Eosinophils % (Manual) 0 % (0.0-4.3) 05/13/19 09:13 Basophils % (Manual) 0 % (0.0-1.8) 05/13/19 09:13 Metamyelocytes % 0 % 05/13/19 09:13 Myelocytes % 0 % 05/13/19 09:13 Promyelocytes % 0 % 05/13/19 09:13 Blast Cells % 0 % 05/13/19 09:13 Nucleated RBC % 6.0 % (0.0-0.9) H 05/13/19 09:13 Seg Neutrophils # 7.3 K/mm3 (1.8-7.7) 05/12/19 11:09 Seg Neutrophils # Man 4.0 K/mm3 (1.8-7.7) 05/13/19 09:13 Band Neutrophils # 10.7 K/mm3 05/13/19 09:13 Lymphocytes # (Manual) 0.1 K/mm3 (1.2-5.4) L 05/13/19 09:13 Abs React Lymphs (Man) 0.0 K/mm3 05/13/19 09:13 Monocytes # (Manual) 0.0 K/mm3 (0.0-0.8) 05/13/19 09:13 Eosinophils # (Manual) 0.0 K/mm3 (0.0-0.4) 05/13/19 09:13 Basophils # (Manual) 0.0 K/mm3 (0.0-0.1) 05/13/19 09:13 Metamyelocytes # 0.0 K/mm3 05/13/19 09:13 Myelocytes # 0.0 K/mm3 05/13/19 09:13 Promyelocytes # 0.0 K/mm3 05/13/19 09:13 Blast Cells # 0.0 K/mm3 05/13/19 09:13 WBC Morphology Not Reportable 05/13/19 09:13 Hypersegmented Neuts Not Reportable 05/13/19 09:13 Hyposegmented Neuts Not Reportable 05/13/19 09:13 Hypogranular Neuts Not Reportable 05/13/19 09:13 Smudge Cells Not Reportable 05/13/19 09:13 Toxic Granulation Not Reportable 05/13/19 09:13 Toxic Vacuolation Not Reportable 05/13/19 09:13 Dohle Bodies Not Reportable 05/13/19 09:13 Pelger-Huet Anomaly Not Reportable 05/13/19 09:13 Maribeth Rods Not Reportable 05/13/19 09:13 Platelet Estimate Consistent w auto 05/13/19 09:13 Clumped Platelets Not Reportable 05/13/19 09:13 Plt Clumps, EDTA Not Reportable 05/13/19 09:13 Large Platelets Not Reportable 05/13/19 09:13 Giant Platelets Not Reportable 05/13/19 09:13 Platelet Satelliting Not Reportable 05/13/19 09:13 Plt Morphology Comment Not Reportable 05/13/19 09:13 RBC Morphology Normal 05/13/19 09:13 Dimorphic RBCs Not Reportable 05/13/19 09:13 Polychromasia Not Reportable 05/13/19 09:13 Hypochromasia Not Reportable 05/13/19 09:13 Poikilocytosis Not Reportable 05/13/19 09:13 Anisocytosis Not Reportable 05/13/19 09:13 Microcytosis Not Reportable 05/13/19 09:13 Macrocytosis Not Reportable 05/13/19 09:13 Spherocytes Not Reportable 05/13/19 09:13 Pappenheimer Bodies Not Reportable 05/13/19 09:13 Sickle Cells Not Reportable 05/13/19 09:13 Target Cells Not Reportable 05/13/19 09:13 Tear Drop Cells Not Reportable 05/13/19 09:13 Ovalocytes Not Reportable 05/13/19 09:13 Helmet Cells Not Reportable 05/13/19 09:13 [place] Bodies Not Reportable 05/13/19 09:13 [place] Rings Not Reportable 05/13/19 09:13 [place] Cells Not Reportable 05/13/19 09:13 Bite Cells Not Reportable 05/13/19 09:13 Crenated Cell Not Reportable 05/13/19 09:13 Elliptocytes Not Reportable 05/13/19 09:13 Acanthocytes (Spur) Not Reportable 05/13/19 09:13 Rouleaux Not Reportable 05/13/19 09:13 Hemoglobin C Crystals Not Reportable 05/13/19 09:13 Schistocytes Not Reportable 05/13/19 09:13 Malaria parasites Not Reportable 05/13/19 09:13 Kahlil Bodies Not Reportable 05/13/19 09:13 Hem Pathologist Commnt No 05/13/19 09:13 PT 14.3 Sec. (12.2-14.9) 05/12/19 11:09 INR 1.10 (0.87-1.13) 05/12/19 11:09 APTT 29.8 Sec. (24.2-36.6) 05/12/19 11:09 D-Dimer 369.18 ng/mlDDU (0-234) H 05/12/19 11:09 Sodium 141 mmol/L (137-145) 05/13/19 09:13 Potassium 4.6 mmol/L (3.6-5.0) 05/13/19 09:13 Chloride 104.4 mmol/L (98-107) 05/13/19 09:13 Carbon Dioxide 22 mmol/L (22-30) 05/13/19 09:13 Anion Gap 19 mmol/L 05/13/19 09:13 BUN 12 mg/dL (7-17) 05/13/19 09:13 Creatinine 0.6 mg/dL (0.7-1.2) L 05/13/19 09:13 Estimated GFR > 60 ml/min 05/13/19 09:13 BUN/Creatinine Ratio 20 % 05/13/19 09:13 Glucose 290 mg/dL (65-100) H 05/13/19 09:13 POC Glucose 330 (70-105) H 05/13/19 22:34 Hemoglobin A1c 7.6 % (4-6) H 05/13/19 09:13 Calcium 8.7 mg/dL (8.4-10.2) 05/13/19 09:13 NT-Pro-B Natriuret Pep 1874 pg/mL (0-900) H 05/12/19 11:09 Triglycerides 56 mg/dL (2-149) 05/13/19 09:13 Cholesterol 90 mg/dL (50-199) 05/13/19 09:13 LDL Cholesterol Direct 34 mg/dL (50-130) L 05/13/19 09:13 HDL Cholesterol 50 mg/dL (40-59) 05/13/19 09:13 Cholesterol/HDL Ratio 1.80 % 05/13/19 09:13 Nasal Screen MRSA (PCR) Negative (Negative) 05/12/19 16:30 Vancomycin Trough 35.9 ug/mL (5.0-20.0) H 05/13/19 21:06 Influenza A (Rapid) Negative (Negative) 05/12/19 16:30 Influenza A (RT-PCR) Negative (Negative) 05/12/19 16:30 Influenza B (Rapid) Negative (Negative) 05/12/19 16:30 Influenza B (RT-PCR) Positive (Negative) A 05/12/19 16:30 Active Medications - Current Medications Current Medications: Generic Name Dose Route Start Last Admin Trade Name Freq PRN Reason Stop Dose Admin Acetaminophen 650 mg 05/12/19 13:15 05/13/19 22:54 Tylenol PO 650 mg Q4H PRN Administration Pain MILD(1-3)/Fever >100.5/ORTIZ Albuterol/Ipratropium 1 ampul 05/13/19 02:00 05/14/19 07:08 Duoneb *Not For Prn Use* IH 1 ampul Q6HRT RADHA Administration Apixaban 5 mg 05/12/19 22:00 05/13/19 22:54 Eliquis PO 5 mg BID RADHA Administration Protocol Budesonide 0.5 mg 05/13/19 08:00 05/14/19 07:08 Pulmicort IH 0.5 mg Q12HRT RADHA Administration Calcium Carbonate/Glycine 1,250 mg 05/12/19 22:00 05/13/19 22:54 Oscal PO 1,250 mg BID RADHA Administration Dextrose 50 ml 05/12/19 13:15 D50w (25gm) Syringe IV Q30MIN PRN Hypoglycemia Protocol Hydrocodone Bit/Homatropine Methylb 5 ml 05/12/19 13:27 05/14/19 07:57 Hydromet PO 5 ml Q4H PRN Administration Cough Ceftriaxone Sodium 2 gm in 100 mls @ 200 mls/hr 05/12/19 15:00 05/13/19 11:48 Rocephin/Ns 2 Gm/100 Ml IV 200 mls/hr Q24HR RADHA Administration Vancomycin HCl 2,000 mg/ 540 mls @ 250 mls/hr 05/12/19 22:00 05/14/19 06:59 Sodium Chloride IV Not Given Q8H RADHA Insulin Human Lispro 0 unit 05/12/19 16:30 05/13/19 23:28 Humalog SUB-Q 4 unit ACHS RADHA Administration Protocol Methylprednisolone Sodium Succinate 40 mg 05/12/19 22:00 05/14/19 06:58 Solu-Medrol IV 40 mg Q8HR RADHA Administration Metoprolol Tartrate 75 mg 05/12/19 22:00 05/13/19 22:54 Metoprolol PO 75 mg BID RADHA Administration Multivitamins 1 each 05/13/19 10:00 05/13/19 11:47 Theragran Tab PO 1 each DAILY RADHA Administration Ondansetron HCl 4 mg 05/12/19 13:15 Zofran IV Q8H PRN Nausea And Vomiting Oseltamivir Phosphate 75 mg 05/12/19 17:00 05/13/19 22:54 Tamiflu PO 05/16/19 22:01 75 mg BID RADHA Administration Sodium Chloride 10 ml 05/12/19 22:00 05/13/19 22:54 Sodium Chloride Flush Syringe 10 Ml IV 10 ml BID RADHA Administration Sodium Chloride 10 ml 05/12/19 13:15 05/14/19 06:59 Sodium Chloride Flush Syringe 10 Ml IV 10 ml PRN PRN Administration LINE FLUSH Temazepam 15 mg 05/12/19 21:27 Restoril PO QHS PRN Sleep
[2019-05-14] MEDS: INSULIN LISPRO 100 UNIT/ML SUB-Q SCH ×4 (09:29→22:46)
[2019-05-14] MEDS: OSELTAMIVIR 75 MG CAP PO SCH ×2 (09:30→22:44)
[2019-05-14] MEDS: MULTIVITAMINS ,THERAPEUTIC TAB PO SCH (09:30)
[2019-05-14] MEDS: cefTRIAXone/NS 2 GM/100 ML 2 GM/100 ML BAG IV SCH (09:30)
[2019-05-14] MEDS: CALCIUM CARBONATE 1250 MG TAB PO SCH ×2 (09:31→22:43)
[2019-05-14] MEDS: METOPROLOL TARTRATE 50 MG TAB PO SCH ×2 (09:31→22:45)
[2019-05-14] MEDS: APIXABAN 5 MG TAB PO SCH ×2 (09:31→22:44)
[2019-05-14] MEDS ORDERED: VANCOMYCIN 2,000 MG in SODIUM CHLORIDE 0.9% 500 ML 500 ML IV SCH (10:15)
--- NOTE | 2019-05-14 12:15 | Progress Note ---
Assessment and Plan Cultures: 05/12/2019 blood culture: no growth Influenza B positive MRSA nasal PCR: negative Sputum: light growth of normal yasmin A/P: 63-year-old female with diabetes mellitus, hypertension, atrial fibrillation on anticoagulation, sleep apnea, recent hospitalization with CHF admitted with: #Right-sided pneumonia, Influenza B, possible post-influenza pneumonia, acute respiratory failure #Diabetes mellitus type 2 #Atrial fibrillation, on anticoagulation #Morbid obesity Recs: continue Tamiflu for total 5 days Ceftriaxone and Vancomycin discontinued Will follow. Jeb Azar MD, FACP [facility] C: [phone] O: [phone] F: [phone] Subjective Date of service: 05/14/19 Interval history: No fever. complains of shortness of breath and wheezing, doesn't feel good. Objective - Exam Narrative Exam: Physical Exam: Constitutional: Alert, cooperative. No acute distress. Morbidly obese Head, Ears, Nose: Normocephalic, atraumatic. External ears, nose normal Eyes: Conjunctivae/corneas clear. No icterus. No ptosis. Neck: Supple, no meningeal signs Oral: no thrush Cardiovascular: S1, S2 normal Respiratory: few b/l rhonchi + GI: Soft, non-tender; bowel sounds normal. No peritoneal signs Musculoskeletal: trace pedal edema Skin: No rash or abscess Hem/Lymphatic: No palpable cervical or supraclavicular nodes. No lymphangitis Psych: Mood ok. Affect normal Neurological: Awake, alert, oriented. No gross abnormality - Constitutional Vitals: Vital Signs Temp Pulse Resp BP Pulse Ox 98.7 F 87 20 154/84 98 05/14/19 04:57 05/14/19 07:08 05/14/19 07:08 05/14/19 04:57 05/14/19 07:08 Temperature -Last 24 Hours Temperature 98.7 F Temperature 98.4 F Temperature 98.2 F Temperature 97.3 F - Labs CBC & Chem 7: 05/13/19 09:13 05/13/19 09:13 Labs: Abnormal lab results 05/13/19 05/13/19 05/13/19 Range/Units 13:22 16:40 21:06 POC Glucose 296 H 308 H (70-105) Vancomycin Trough 35.9 H (5.0-20.0) ug/mL 05/13/19 05/14/19 Range/Units 22:34 08:06 POC Glucose 330 H 261 H (70-105) Vancomycin Trough (5.0-20.0) ug/mL
[2019-05-14] MEDS ORDERED: HYPROMELLOSE 0.5% OPHTH SOLN 15 ML OU PRN (18:47)
[2019-05-14] MEDS: ACETAMINOPHEN 325 MG TAB PO PRN (22:56)
[2019-05-15] MEDS: IPRATROPIUM/ALBUTEROL SULFATE 3 ML AMPUL.NEB IH SCH ×3 (03:15→13:42)
[2019-05-15] MEDS: BUDESONIDE 0.5 MG/2 ML NEBU IH SCH (07:57)
[2019-05-15] MEDS: INSULIN LISPRO 100 UNIT/ML SUB-Q SCH ×2 (08:47→11:38)
[2019-05-15] MEDS: MULTIVITAMINS ,THERAPEUTIC TAB PO SCH (09:47)
[2019-05-15] MEDS: OSELTAMIVIR 75 MG CAP PO SCH (09:47)
[2019-05-15] MEDS: APIXABAN 5 MG TAB PO SCH (09:47)
[2019-05-15] MEDS: METOPROLOL TARTRATE 50 MG TAB PO SCH (09:48)
[2019-05-15] MEDS ORDERED: predniSONE 20 MG TAB PO SCH (10:00)
[2019-05-15] MEDS: CALCIUM CARBONATE 1250 MG TAB PO SCH (11:16)
[2019-05-15] MEDS: HYDROcodone/HOMATROPINE 5-1.5MG /5 ML ORAL LIQD UNIT DOSE PO PRN (11:38)
--- NOTE | 2019-05-15 13:11 | Discharge Summary ---
Providers - Providers Date of Admission: 05/12/19 18:24 Date of discharge: 05/15/19 Attending physician: JOHN KAY 05/12/19 13:15 Consult to Physician [CONS] Routine Comment: Consulting Provider: DOROTA MARES Physician Instructions: Reason For Exam: pna 05/12/19 21:28 Consult to Case Management [CONS] Routine Services Needed at Discharge: Other Notified:: copy given to CM Comment:: home cpap 05/15/19 08:51 Physical Therapy Evaluation and Treat [CONS] Routine Comment: Reason For Exam: weakness Primary care physician: FLAT DRIER Hospitalization Condition: Stable Hospital course: Patient is 63-year-old woman with a history of afib on Eliquis, type 2 DM and hypertension who presents to the hospital with pneumonia * Chest x-ray shows airspace disease on the right side most consistent with pneumonia which was not previously present 2 weeks ago Influenza B Right aspiration Pneumonia, sepsis IV antibiotics, ID consult treat with Tamiflu day / Hemoptysis Most likely due to anticoagulants superimposed on pneumonia. Patient is coughing consistently due to pneumonia resolved Diabetes mellitus type 2 with hyperglycemia complications Consistent carbohydrate diet, sliding scale insulin, A1c 7.6 Chronic A. 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, she had gastric sleeve in 2018 and lost 75-80 lbs but gradually gained it all back in 2019, we talk about re-tightening the gastric sleeve, she will inquire Disposition: DC-01 TO HOME OR SELFCARE Time spent for discharge: 35 minutes Core Measure Documentation - Palliative Care Palliative Care/ Comfort Measures: Not Applicable - Core Measures Any of the following diagnoses?: none - VTE Discharge Requirements Deep Vein Thrombosis/Pulmonary Embolism Present on Admission: No Has pt received <5 days of overlap therapy or INR<2.0: No Anticoagulant overlap therapy prescribed at discharge: No Contraindication No Overlap Therapy order at DC: Not Indicated Exam - Physical Exam Narrative exam: Gen: WDWN, ill apearing mild increase assessory muscles Awake, Alert, Orientated HEENT: NCAT, EOMI, PERRL, OP Clear Neck: supple, no adenopathy, no thyromegaly, no JVD CVS/Heart: RRR, normal S1S2, pulses present bilaterally Chest/Lungs:diminished and coarse right bs Symmetrical chest expansion, good air entry bilaterally GI/Abdomen: soft, NTND, good bowel sounds, no guarding or rebound /Bladder: no suprapubic tenderness, no CVA or paraspinal tenderness Extermity/Skin: no c/c/e, no obvious rash MSK: FROM x 4 Neuro: CN 2-12 grossly intact, no new focal deficits Psych: calm - Constitutional Vitals: Temp Pulse Resp BP Pulse Ox 97.8 F 85 18 159/82 90 05/15/19 12:10 05/15/19 12:10 05/15/19 12:10 05/15/19 12:10 05/15/19 12:10 Plan Activity: other (no strenous activity until cleared by PCP) Diet: low salt, diabetic Special Instructions: record daily BP diary, record blood sugar diary (3 times a day) Additional Instructions: Please inquire about re-tightening the gastric sleeve Follow up with: LAURA MCCARTHY MD [Staff Physician] - 7 Days Prescriptions: predniSONE [Deltasone] 1 dose PO QDAY #13 tablet ALBUTEROL Inhaler (OR & NICU) [ProAir HFA Inhaler] 2 puff IH QID PRN #1 unit PRN Reason: Shortness Of Breath guaiFENesin/DEXTROMETHORPHAN [Robitussin Cough-Chest Dm Liq] 20 ml PO Q4H PRN #600 liquid PRN Reason: Cough Oseltamivir [Tamiflu] 75 mg PO BID #4 capsule
--- NOTE | 2019-05-15 13:47 | Progress Note ---
Assessment and Plan Cultures: 05/12/2019 blood culture: no growth Influenza B positive MRSA nasal PCR: negative Sputum: light growth of normal yasmin A/P: 63-year-old female with diabetes mellitus, hypertension, atrial fibrillation on anticoagulation, sleep apnea, recent hospitalization with CHF admitted with: #Right-sided pneumonia, Influenza B, possible post-influenza pneumonia, acute respiratory failure: improving. #Diabetes mellitus type 2 #Atrial fibrillation, on anticoagulation #Morbid obesity Recs: Ok for discharge from ID standpoint, complete total 5 days of Tamiflu Jeb Azar MD, FACP [facility] ([facility] C: [phone] O: [phone] F: [phone] Subjective Date of service: 05/15/19 Interval history: No fever. Breathing is much improved. Tolerating PO. Wants to go home. Objective - Exam Narrative Exam: Physical Exam: Constitutional: Alert, cooperative. No acute distress. Morbidly obese Head, Ears, Nose: Normocephalic, atraumatic. External ears, nose normal Eyes: Conjunctivae/corneas clear. No icterus. No ptosis. Neck: Supple, no meningeal signs Oral: no thrush Cardiovascular: S1, S2 normal Respiratory: clear bilaterally, few rhonchi GI: Soft, non-tender; bowel sounds normal. No peritoneal signs Musculoskeletal: trace pedal edema Skin: No rash or abscess Hem/Lymphatic: No palpable cervical or supraclavicular nodes. No lymphangitis Psych: Mood ok. Affect normal Neurological: Awake, alert, oriented. No gross abnormality - Constitutional Vitals: Vital Signs Temp Pulse Resp BP Pulse Ox 97.8 F 85 18 159/82 90 05/15/19 12:10 05/15/19 13:44 05/15/19 13:44 05/15/19 12:10 05/15/19 12:10 Temperature -Last 24 Hours Temperature 97.8 F Temperature 97.8 F Temperature 98.1 F Temperature 98.4 F - Labs CBC & Chem 7: 05/13/19 09:13 05/13/19 09:13 Labs: Abnormal lab results 05/14/19 05/14/19 05/15/19 Range/Units 16:31 22:06 07:47 POC Glucose 296 H 257 H 163 H (70-105) 05/15/19 Range/Units 11:27 POC Glucose 244 H (70-105)
[2019-05-15 14:51] VITALS: BP 146/83
== END 2019-05-15 16:28 | disposition home or self-care (01) | DRG 871 ==
LOC: ED 09:40 → 3A 13:15 → OBSVTOIN 18:24
PROVIDERS: ADMIT Internal Medicine; ATTEND Internal Medicine
PROC: 5A09357 Assistance with Respiratory Ventilation, Less than 24 Consecutive Hours, Continuous Positive Airway Pressure (ICD-10-PCS; principal; 2019-05-13)
PROC: 5A09357 Assistance with Respiratory Ventilation, Less than 24 Consecutive Hours, Continuous Positive Airway Pressure (ICD-10-PCS; 2019-05-15)
DX: A41.9 Sepsis, unspecified organism (principal); J96.00 Acute respiratory failure, unspecified whether with hypoxia or hypercapnia; J10.00 Influenza due to other identified influenza virus with unspecified type of pneumonia; J69.0 Pneumonitis due to inhalation of food and vomit; Z68.45 Body mass index [BMI] 70 or greater, adult; R04.2 Hemoptysis; I48.20 Chronic atrial fibrillation, unspecified; J44.1 Chronic obstructive pulmonary disease with (acute) exacerbation; D68.59 Other primary thrombophilia; D68.32 Hemorrhagic disorder due to extrinsic circulating anticoagulants; E11.649 Type 2 diabetes mellitus with hypoglycemia without coma; E66.01 Morbid (severe) obesity due to excess calories; T45.515A Adverse effect of anticoagulants, initial encounter; G47.33 Obstructive sleep apnea (adult) (pediatric); I11.0 Hypertensive heart disease with heart failure; I50.9 Heart failure, unspecified; Z79.01 Long term (current) use of anticoagulants; Z87.891 Personal history of nicotine dependence; Z83.3 Family history of diabetes mellitus; Z80.41 Family history of malignant neoplasm of ovary; Z80.0 Family history of malignant neoplasm of digestive organs; Z88.8 Allergy status to other drugs, medicaments and biological substances; Z88.6 Allergy status to analgesic agent; Z98.51 Tubal ligation status; Y92.098 Other place in other non-institutional residence as the place of occurrence of the external cause
CPT/HCPCS: 36415; 71046; 80048; 80061; 80202; 82962; 83036; 83880; 85007; 85025; 85379; 85610; 85730; 87040; 87070; 87205; 87400; 87641; 90686; 93005; 93010; 94640; 94644; 94660; 94760; G0378; 87502; J0456; J0692; J0696; J1815; J2920; J2930; J3370; J7040; J7050; J7512

== ENCOUNTER 2021-07-16 12:25 | Emergency (ER) | payer MEDICARE ==
[2021-07-16] MEDS ORDERED: ACETAMINOPHEN 500 MG TAB PO ONE (14:26)
--- NOTE | 2021-07-16 14:27 | Emergency Department Report ---
ED General Adult HPI - General Chief complaint: Extremity Problem,Nontraumatic Stated complaint: GOUT IN LT FOOT/SWELLING Time Seen by Provider: 07/16/21 13:58 Source: patient, RN notes reviewed, old records reviewed Mode of arrival: Wheelchair Limitations: No Limitations - History of Present Illness Initial comments: The patient is a 65-year-old female with a history of body mass index excess of 70, congestive heart failure, EF is 55 to 60% 2019, hypertension, A. fib and permanently anticoagulated. Home medications include Lopressor, Eliquis, Restasis, torsemide ( 100 mg daily), calcium, vitamin B1, multivitamin, apple cider vinegar capsules, ci nnamon capsules, loratadine, back gabapentin, biotin and NovoLog insulin. The patient presents to the ER today with complaint of left foot and left ankle swelling, for the past few days. She feels like she has gained weight unintentionally. She endorses compliance with her medications, and intermittent compliance with CHF appropriate diet. She thinks that she may have been diagnosed with gout at [facility] last year, but has not had a formal arthrocentesis. She is ambulatory at home with assistance and with a walker. She currently denies headache, neck pain, chest pain, abdominal pain, hematemesis and bright red blood per rectum. She has lower extremity swelling, and left foot and left ankle blistering. -: Gradual, days(s) Location: left, lower extremity Quality: aching Consistency: constant Improves with: rest Worsens with: movement - Related Data Home Medications Medication Instructions Recorded Confirmed Last Taken Calcium Carbonate [Calcium] 1 mg PO BID 03/03/13 05/12/19 03/03/13 02:00 Gabapentin 300 mg PO QDAY 03/03/13 05/12/19 03/03/13 02:00 Insulin NPH Hum/Reg Insulin Hm 30 units SUB-Q QPM 03/03/13 05/12/19 03/03/13 02:00 [HumuLIN 70-30 Vial] Insulin NPH Hum/Reg Insulin Hm 40 units SUB-Q QAM 03/03/13 05/12/19 03/03/13 11:30 [HumuLIN 70-30 Vial] Multivitamin [Multi-Vitamin Daily] 1 tab PO QDAY 03/03/13 05/12/19 03/03/13 02:00 Apixaban [Eliquis] 5 mg PO BID 04/24/19 05/12/19 Unknown Insulin Aspart (Nf) [NovoLOG See Protocol SQ QACHS 05/12/19 05/12/19 Unknown Flexpen] Metoprolol Tartrate 75 mg PO BID 05/12/19 05/12/19 Unknown Previous Rx's Medication Instructions Recorded Last Taken Type Hydrocodone Bit/Homatrop Me-Br 5 ml PO Q4H PRN #80 ml 03/03/13 Unknown Rx [HYDROcodone-Homatropine Syr 5/1.5 mg/5ml] Acetaminophen [Acetaminophen TAB] 2 tab PO Q4H PRN #15 tablet 05/15/19 Unknown Rx Albuterol Mdi (or & Nicu Only) 2 puff IH QID PRN #1 unit 05/15/19 Unknown Rx [ProAir HFA Inhaler] Oseltamivir [Tamiflu] 75 mg PO BID #4 capsule 05/15/19 Unknown Rx guaiFENesin/DEXTROMETHORPHAN 20 ml PO Q4H PRN #600 liquid 05/15/19 Unknown Rx [Robitussin Cough-Chest Dm Liq] predniSONE [Deltasone] 1 dose PO QDAY #13 tablet 05/15/19 Unknown Rx Famotidine [Pepcid] 20 mg PO BID #10 tablet 11/20/19 Unknown Rx diphenhydrAMINE [Benadryl CAP] 25 mg PO Q6HR PRN #20 capsule 11/20/19 Unknown Rx predniSONE [Deltasone] 40 mg PO QDAY 5 Days tab 11/20/19 Unknown Rx Torsemide [Demadex] 40 mg PO QDAY #14 tab 07/16/21 Unknown Rx Torsemide [Demadex] 100 mg PO QDAY 7 Days #7 tab 07/16/21 Unknown Rx Allergies Allergy/AdvReac Type Severity Reaction Status Date / Time duloxetine [From Cymbalta] Allergy Unknown Verified 04/24/19 15:38 ibuprofen Allergy Unknown Verified 04/24/19 15:38 lisinopril Allergy Swelling Verified 04/24/19 15:38 ED Review of Systems ROS: Stated complaint: GOUT IN LT FOOT/SWELLING Other details as noted in HPI Constitutional: denies: fever Eyes: denies: eye discharge ENT: denies: epistaxis Respiratory: shortness of breath (Chronic shortness of breath), SOB with exertion, SOB at rest. denies: cough Cardiovascular: dyspnea on exertion, edema Musculoskeletal: myalgia. denies: arthralgia (Denies acute arthralgia) Neurological: denies: weakness Hematological/Lymphatic: denies: easy bleeding ED Past Medical Hx - Past Medical History Hx Hypertension: Yes Hx Congestive Heart Failure: Yes Hx Diabetes: Yes (Type 2 diabetes) Hx Asthma: No Hx COPD: No Hx HIV: No Additional medical history: DDD, Afib, Sciatica - Surgical History Additional Surgical History: lap band. tubal ligation. carpel tunnel x 4. umbilical hernia repair. Hysterectomy - Social History Smoking Status: Former Smoker Substance Use Type: Alcohol - Medications Home Medications: Home Medications Medication Instructions Recorded Confirmed Last Taken Type Calcium Carbonate [Calcium] 1 mg PO BID 03/03/13 05/12/19 03/03/13 02:00 History Gabapentin 300 mg PO QDAY 03/03/13 05/12/19 03/03/13 02:00 History Hydrocodone Bit/Homatrop Me-Br 5 ml PO Q4H PRN #80 ml 03/03/13 05/12/19 Unknown Rx [HYDROcodone-Homatropine Syr 5/1.5 mg/5ml] Insulin NPH Hum/Reg Insulin Hm 30 units SUB-Q QPM 03/03/13 05/12/19 03/03/13 02:00 History [HumuLIN 70-30 Vial] Insulin NPH Hum/Reg Insulin Hm 40 units SUB-Q QAM 03/03/13 05/12/19 03/03/13 11:30 History [HumuLIN 70-30 Vial] Multivitamin [Multi-Vitamin Daily] 1 tab PO QDAY 03/03/13 05/12/19 03/03/13 02:00 History Apixaban [Eliquis] 5 mg PO BID 04/24/19 05/12/19 Unknown History Insulin Aspart (Nf) [NovoLOG See Protocol SQ QACHS 05/12/19 05/12/19 Unknown History Flexpen] Metoprolol Tartrate 75 mg PO BID 05/12/19 05/12/19 Unknown History Acetaminophen [Acetaminophen TAB] 2 tab PO Q4H PRN #15 tablet 05/15/19 Unknown Rx Albuterol Mdi (or & Nicu Only) 2 puff IH QID PRN #1 unit 05/15/19 Unknown Rx [ProAir HFA Inhaler] Oseltamivir [Tamiflu] 75 mg PO BID #4 capsule 05/15/19 Unknown Rx guaiFENesin/DEXTROMETHORPHAN 20 ml PO Q4H PRN #600 liquid 05/15/19 Unknown Rx [Robitussin Cough-Chest Dm Liq] predniSONE [Deltasone] 1 dose PO QDAY #13 tablet 05/15/19 Unknown Rx Famotidine [Pepcid] 20 mg PO BID #10 tablet 11/20/19 Unknown Rx diphenhydrAMINE [Benadryl CAP] 25 mg PO Q6HR PRN #20 capsule 11/20/19 Unknown Rx predniSONE [Deltasone] 40 mg PO QDAY 5 Days tab 11/20/19 Unknown Rx Torsemide [Demadex] 40 mg PO QDAY #14 tab 07/16/21 Unknown Rx Torsemide [Demadex] 100 mg PO QDAY 7 Days #7 tab 07/16/21 Unknown Rx ED Physical Exam - General Limitations: No Limitations General appearance: alert, in no apparent distress, obese - Head Head exam: Present: atraumatic, normocephalic - Eye Eye exam: Present: normal appearance, EOMI. Absent: nystagmus - ENT ENT exam: Present: normal exam, normal orophraynx, mucous membranes moist, normal external ear exam - Neck Neck exam: Present: normal inspection, full ROM. Absent: tenderness, meningismus - Respiratory Respiratory exam: Present: normal lung sounds bilaterally. Absent: respiratory distress, wheezes, rales, rhonchi, stridor, decreased breath sounds - Cardiovascular Cardiovascular Exam: Present: regular rate, irregular rhythm, normal heart sounds. Absent: bradycardia, tachycardia, systolic murmur, diastolic murmur, rubs, gallop - GI/Abdominal GI/Abdominal exam: Present: soft. Absent: distended, tenderness, guarding, rebound, rigid, pulsatile mass - Extremities Exam Extremities exam: Present: full ROM (Full range of motion in the bilateral ankles and knees), pedal edema (2-3+ edema in the bilateral lower extremity), other (There is no long bony tenderness. The muscular compartments are soft. The pelvis is stable). Absent: normal inspection (Swelling noted to the bilateral dorsal feet, there are minimal blisters noted on the dorsal medial aspect of the left foot.), calf tenderness - Back Exam Back exam: Present: normal inspection. Absent: tenderness, CVA tenderness (R), CVA tenderness (L), paraspinal tenderness, vertebral tenderness - Neurological Exam Neurological exam: Present: alert, oriented X3, other (No facial droop. Tongue midline. Extraocular movements intact bilaterally. Facial sensation intact to light touch in V1, V2, V3 distribution bilaterally. 5 and a 5 strength in 4 extremities. Sensation intact to light touch in 4 extremities.). Absent: motor sensory deficit - Psychiatric Psychiatric exam: Present: normal affect, normal mood - Skin Skin exam: Present: warm, dry, intact, normal color. Absent: rash ED Course Vital Signs 07/16/21 13:26 Temperature 98.3 F Pulse Rate 87 Respiratory 18 Rate Blood Pressure 119/69 O2 Sat by Pulse 95 Oximetry - Reevaluation(s) Reevaluation #1: 07/16/21 15:49 Differential diagnosis, including but not limited to: Congestive heart failure, arthritis, renal insufficiency, hepatic insufficiency Assessment and plan: 65-year-old female with multiple medical comorbidities, admitting to diet and lifestyle indiscretions, presenting to the ER today with a primary complaint of left foot and ankle swelling and pain, with skin blistering, has full range of motion in the ankles, without redness, pus or streaking, her examination at this time is not suggestive of arthritis or gout, but rather fluid overload. She is compliant with her eliquis systemic anticoagulation, she is not currently tachycardic, tachypneic or hypoxic, she denies DVT and pulmonary embolism risk factors, and she is low risk by Wells criteria for pulmonary embolism. This is likely a congestive heart failure exacerbation. Patient takes torsemide, 100 mg on a daily basis. Laboratory studies pending. X-ray of the ankle shows no fracture or dislocation. X-ray of the chest is reviewed and appreciated. She will receive acetaminophen for pain. We will reassess after her laboratory studies have resulted. I have discussed this with the patient and family member, all questions answered, we will reassess after her laboratory studies have resulted 07/16/21 16:50 Patient in no acute respiratory distress. Laboratory studies reviewed and a ppreciated. Discussed patient's results with her, with her daughter, and herself, with her consent. Patient endorses understanding. Increase torsemide to 140 mg. Patient has follow-up with her sales operations associate this Saturday. She is not hypoxic at this time and she is not in any acute respiratory distress at this time. She is reliable to follow-up as an outpatient. Return precautions are reviewed. 07/16/21 16:59 07/16/21 17:02 ED Medical Decision Making - Lab Data Result diagrams: 07/16/21 15:19 07/16/21 15:19 Vital Signs 07/16/21 13:26 Temperature 98.3 F Pulse Rate 87 Respiratory 18 Rate Blood Pressure 119/69 O2 Sat by Pulse 95 Oximetry Lab Results 07/16/21 07/16/21 07/16/21 Range/Units 15:19 15:19 15:19 WBC 12.9 H (4.5-11.0) K/mm3 RBC 4.03 (3.65-5.03) M/mm3 Hgb 12.7 (10.1-14.3) gm/dl Hct 38.7 (30.3-42.9) % MCV 96 (79-97) fl MCH 32 (28-32) pg MCHC 33 (30-34) % RDW 14.4 (13.2-15.2) % Plt Count 296 (140-440) K/mm3 PT 16.3 H (12.2-14.9) Sec. INR 1.17 H (0.87-1.13) Sodium 137 (137-145) mmol/L Potassium 4.0 (3.6-5.0) mmol/L Chloride 95.4 L (98-107) mmol/L Carbon Dioxide 28 (22-30) mmol/L Anion Gap 18 mmol/L BUN 21 H (7-17) mg/dL Creatinine 1.0 (0.6-1.2) mg/dL Estimated GFR > 60 ml/min BUN/Creatinine Ratio 21 % Glucose 96 (65-100) mg/dL Calcium 10.0 (8.4-10.2) mg/dL Magnesium 2.10 (1.7-2.3) mg/dL Total Bilirubin 0.70 (0.1-1.2) mg/dL AST 14 (5-40) units/L ALT 10 (7-56) units/L Alkaline Phosphatase 94 (35-129) units/L Total Creatine Kinase (30-135) units/L NT-Pro-B Natriuret Pep 1418 H (0-900) pg/mL Total Protein 7.9 (6.3-8.2) g/dL Albumin 3.6 L (3.9-5) g/dL Albumin/Globulin Ratio 0.8 % 07/16/21 Range/Units 15:19 WBC (4.5-11.0) K/mm3 RBC (3.65-5.03) M/mm3 Hgb (10.1-14.3) gm/dl Hct (30.3-42.9) % MCV (79-97) fl MCH (28-32) pg MCHC (30-34) % RDW (13.2-15.2) % Plt Count (140-440) K/mm3 PT (12.2-14.9) Sec. INR (0.87-1.13) Sodium (137-145) mmol/L Potassium (3.6-5.0) mmol/L Chloride (98-107) mmol/L Carbon Dioxide (22-30) mmol/L Anion Gap mmol/L BUN (7-17) mg/dL Creatinine (0.6-1.2) mg/dL Estimated GFR ml/min BUN/Creatinine Ratio % Glucose (65-100) mg/dL Calcium (8.4-10.2) mg/dL Magnesium (1.7-2.3) mg/dL Total Bilirubin (0.1-1.2) mg/dL AST (5-40) units/L ALT (7-56) units/L Alkaline Phosphatase (35-129) units/L Total Creatine Kinase 55 (30-135) units/L NT-Pro-B Natriuret Pep (0-900) pg/mL Total Protein (6.3-8.2) g/dL Albumin (3.9-5) g/dL Albumin/Globulin Ratio % - EKG Data -: EKG Interpreted by Nv - EKG Data 07/16/21 15:44 The EKG is interpreted at 14: 33 Atrial fibrillation, rate 78 bpm. Normal axis, motion artifact, poor R wave progression, and low voltage. This is not a STEMI. - Radiology Data Radiology results: pending, report reviewed, image reviewed EXAMINATION: Left ankle radiograph series, 3 views, 07/16/2021 CLINICAL INFORMATION / INDICATION: Left ankle pain COMPARISON: None FINDINGS: There is generalized soft tissue swelling of the left ankle without evidence of acute fracture or dislocation. Moderate bony degenerative changes of the ankle and hindfoot are noted. IMPRESSION: 1. Soft tissue swelling of the left ankle without evidence of acute bony fracture. Signer Name: Radha Vergara MD Signed: 07/16/2021 2:25 PM Workstation Name: [id number] CHEST 2 VIEWS, 07/16/2021 INDICATION: Shortness of breath COMPARISON: Chest radiograph, 05/12/2019 FINDINGS: Support devices: None. Heart: There is stable mild to moderate enlargement of the cardiac silhouette. Lungs/pleura: Mildly prominent interstitial markings are noted without evidence of focal airspace disease, pleural effusion or overt pulmonary edema. Additional findings: There are mild to moderate bony degenerative changes throughout the thoracic spine. IMPRESSION: 1. Stable enlargement of the cardiac silhouette. 2. Prominent interstitial markings suggesting vascular congestion without evidence of overt pulmonary edema. Signer Name: Radha Vergara MD Signed: 07/16/2021 2:18 PM Workstation Name: [id number] Critical care attestation.: If time is entered above; I have spent that time in minutes in the direct care of this critically ill patient, excluding procedure time. ED Disposition Clinical Impression: Swelling of lower extremity, Chronic atrial fibrillation, Left ankle pain, Anticoagulant long-term use Disposition: 01 HOME / SELF CARE / HOMELESS Is pt being admited?: No Does the pt Need Aspirin: No Condition: Good Additional Instructions: Please continue current outpatient medications. Please increase torsemide to 30 mg daily. Avoid consumption of heavy and spicy foods, as well as excessive salt consumption. Follow-up with a sales operations associate by this July 21. Patient may follow-up with her outpatient sales operations associate as scheduled, or follow- up with one of the listed sales operations associate as scheduled. Weight-bear as tolerated, patient may take [id number] acetaminophen/Tylenol seen for physical pain. Avoid consumption of Motrin, ibuprofen, Naprosyn, Aleve. Alternate ice packs and heat packs as needed for physical pain. Please return to the emergency room right away with new pain, worsened pain, m igration of pain, projectile vomiting, change in mental status, confusion, inability tolerate liquid feeds, new, worsened or different symptoms not present on the initial emergency room evaluation Prescriptions: Torsemide [Demadex] 30 mg PO QDAY #27 tab Referrals: [facility] [Provider Group] - 3-5 Days [facility] [Provider Group] - 3-5 Days
--- NOTE | 2021-07-16 15:23 | XRay Report ---
CHEST 2 VIEWS, 07/16/2021 INDICATION: Shortness of breath COMPARISON: Chest radiograph, 05/12/2019 FINDINGS: Support devices: None. Heart: There is stable mild to moderate enlargement of the cardiac silhouette. Lungs/pleura: Mildly prominent interstitial markings are noted without evidence of focal airspace dis ease, pleural effusion or overt pulmonary edema. Additional findings: There are mild to moderate bony degenerative changes throughout the thoracic spi ne. IMPRESSION: 1. Stable enlargement of the cardiac silhouette. 2. Prominent interstitial markings suggesting vascular congestion without evidence of overt pulmonary edema. Signer Name: Radha Vergara MD Signed: 07/16/2021 3:18 PM Workstation Name: [id number]
--- NOTE | 2021-07-16 15:30 | XRay Report ---
EXAMINATION: Left ankle radiograph series, 3 views, 07/16/2021 CLINICAL INFORMATION / INDICATION: Left ankle pain COMPARISON: None FINDINGS: There is generalized soft tissue swelling of the left ankle without evidence of acute fract ure or dislocation. Moderate bony degenerative changes of the ankle and hindfoot are noted. IMPRESSION: 1. Soft tissue swelling of the left ankle without evidence of acute bony fracture. Signer Name: Radha Vergara MD Signed: 07/16/2021 3:25 PM Workstation Name: [id number]
[2021-07-16 16:13] LABS: Hematocrit 38.7 % (30.3-42.9); Hemoglobin 12.7 gm/dl (10.1-14.3); Mean Corpuscular HGB Conc 33 % (30-34); Mean Corpuscular Volume 96 fl (79-97); Platelet Count 296 K/mm3 (140-440); Red Blood Count 4.03 M/mm3 (3.65-5.03); Red Cell Distribution Width 14.4 % (13.2-15.2)
[2021-07-16 16:23] LABS: INR 1.17 (0.87-1.13)
[2021-07-16 16:36] LABS: Alanine Aminotransferase 10 units/L (7-56); Albumin 3.6 g/dL (3.9-5); BUN/Creatinine Ratio 21; Blood Urea Nitrogen 21 mg/dL (7-17); Hemolysis Index 7
[2021-07-16] MEDS ORDERED: TORSEMIDE 10 MG TAB PO STA ×2 (16:55→17:01)
[2021-07-16] MEDS ORDERED: TORSEMIDE 100 MG TAB PO STA (17:01)
[2021-07-16] MEDS: TORSEMIDE 10 MG TAB PO STA ×2 (17:46→17:47)
[2021-07-16 18:05] VITALS: BP 112/75
--- NOTE | 2021-07-17 13:41 | Electrocardiograph Report ---
[facility] Test Date: 2021-07-16 Test Time: 14:33:39 Pat Name: SHEILA COOK Department: Room: Gender: F [employer]: KARINA : 1955 Requested By: TU HANLEY Order Number: [id number] Reading MD: Jojo Godfrey Measurements Intervals [place] Rate: 78 P: MS: QRS: 22 QRSD: 89 T: 161 QT: 386 QTc: 441 Interpretive Statements Atrial fibrillation Low voltage, precordial leads Nonspecific T abnormalities, lateral leads No previous ECG available for comparison Electronically Signed On 07-17-2021 13:40:57 EST by Jojo Godfrey
== END 2021-07-16 18:05 | disposition home or self-care (01) ==
LOC: ED 12:25
DX: R22.43 Localized swelling, mass and lump, lower limb, bilateral (principal); I48.20 Chronic atrial fibrillation, unspecified; Z79.01 Long term (current) use of anticoagulants; I10 Essential (primary) hypertension; E11.8 Type 2 diabetes mellitus with unspecified complications; Z87.891 Personal history of nicotine dependence
CPT/HCPCS: 36415; 71046; 80053; 82550; 83735; 83880; 85027; 85610; 93005; 99284